=== PATIENT | male | born 1955 | race Caucasian/White ===

== ENCOUNTER → 2020-04-12 14:21 | Outpatient (BNVA) | payer MEDICARE, SELFPAY | PROVIDERS: PCP Internal Medicine; Visit Provider Internal Medicine Cardiovascular Disease | DX: I25.10 Atherosclerotic heart disease of native coronary artery without angina pectoris (principal); I10 Essential (primary) hypertension; E78.5 Hyperlipidemia, unspecified; I45.10 Unspecified right bundle-branch block | CPT/HCPCS: 93005; 99212 ==

== ENCOUNTER 2020-04-20 06:53 | Outpatient (REF) | payer MEDICARE, SELFPAY ==
[2020-04-20 11:21] LABS: Hematocrit 47.7 % (42-52); Hemoglobin 16.2 g/dl (14.0-18.0); Mean Corpuscular Hemoglobin 30.8 pg (27.0-33.0); Mean Corpuscular Volume 90.7 fL (80-98); Mean Platelet Volume 10.4 fL (9.4-12.4); Platelet Count 221 X10*3/uL (160-400); Red Blood Count 5.26 X10*6/uL (4.60-5.80); Red Cell Distribution Width 12.8 % (11.0-16.0); White Blood Count 13.8 X10*3/uL (4.8-10.8)
[2020-04-20 12:06] LABS: Anion Gap 17 (12-20); Blood Urea Nitrogen 23 mg/dL (9-16); Calcium 8.9 mg/dL (8.4-10.2); Carbon Dioxide 27 mmol/L (22-29); Chloride 97 mmol/L (96-108); Cholesterol 217 mg/dL; Estimated Glomerular Filt Rate > 60; Glucose Random 90 mg/dL (60-115); HDL Cholesterol 84 mg/dL; LDL Cholesterol Calculated 108 mg/dl; Potassium 3.5 mmol/L (3.3-5.1); Sodium 137 mmol/L (135-145); Triglycerides 128 mg/dL
== END 2020-04-20 06:54 | disposition home or self-care (01) ==
LOC: HO.HMGCLDS 06:53
PROVIDERS: Visit Provider Internal Medicine Cardiovascular Disease
DX: I10 Essential (primary) hypertension (principal); I25.10 Atherosclerotic heart disease of native coronary artery without angina pectoris
CPT/HCPCS: 36415; 80048; 80061; 85027

== ENCOUNTER → 2021-04-15 13:16 | Outpatient (BNVA) | payer MEDICARE, SELFPAY | PROVIDERS: PCP Internal Medicine; Visit Provider Internal Medicine Cardiovascular Disease | DX: I25.10 Atherosclerotic heart disease of native coronary artery without angina pectoris (principal); I10 Essential (primary) hypertension | CPT/HCPCS: 93005; 99212 ==

== ENCOUNTER 2021-07-04 06:31 | Outpatient (REF) | payer MEDICARE, SELFPAY ==
[2021-07-04 11:29] LABS: Cholesterol 120 mg/dL; HDL Cholesterol 45 mg/dL; LDL Cholesterol Calculated 46 mg/dl; Triglycerides 145 mg/dL
== END 2021-07-04 06:32 | disposition home or self-care (01) ==
LOC: HO.HMGCLDS 06:31
PROVIDERS: Visit Provider Internal Medicine Cardiovascular Disease
DX: I25.10 Atherosclerotic heart disease of native coronary artery without angina pectoris (principal)
CPT/HCPCS: 36415; 80061

== ENCOUNTER → 2022-04-15 09:30 | Outpatient (BNVA) | payer MEDICARE, SELFPAY | PROVIDERS: PCP Internal Medicine; Referring Provider Internal Medicine; Visit Provider Internal Medicine Cardiovascular Disease | DX: I25.10 Atherosclerotic heart disease of native coronary artery without angina pectoris (principal); I10 Essential (primary) hypertension; Z79.82 Long term (current) use of aspirin | CPT/HCPCS: 93005; 99212 ==

== ENCOUNTER 2023-04-13 12:23 | Outpatient (AMB) | payer MEDICARE, SELFPAY ==
[2023-04-13 12:34] VITALS: BP 130/80; PULSE 82; BMI 36.4
--- NOTE | 2023-04-13 12:34 | MHC.OFFVIS ---
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 Allergies morphine [MORPHINE] Allergy (Intermediate, Unverified 07/17/20 13:27) AGITATION Anesthetics - Amide Type - Select A [Anesthetics - Amide Type] Allergy (Unknown, Unverified 07/17/20 13:27) UNKNOWN Opioids - Morphine Analogues Allergy (Verified 07/17/20 13:27) Unknown Statins Allergy (Unknown, Uncoded 07/17/20 13:27) Unknown Statins Support Allergy (Unknown, Uncoded 07/17/20 13:) muscle and joint pain Medication List - Last Reconciled 04/13/23 by Felipe Daigle MD amlodipine 10 mg PO DAILY aspirin (Adult Aspirin Regimen) 81 mg PO BID cholecalciferol (vitamin D3) 25 mcg PO DAILY evolocumab (Repatha SureClick) 140 mg subcut Q2W 30 days gabapentin 300 mg PO TID losartan-hydrochlorothiazide 50-12.5 mg 1 tab PO DAILY metoprolol succinate ER 100 mg PO DAILY niacin ER (Niaspan) 500 mg PO BEDTIME primidone 50 mg PO BEDTIME thiamine HCl (vitamin B1) 50 mg PO DAILY HPI HPI Comments History of Present Illness Details Madhav comes for follow-up. He has been doing well from cardiac perspective. 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 He denies any chest pain. Denies any syncopal episodes. Denies any worsening shortness of breath. Takes all his medications. Switch to Repatha due to insurance issues. Complains of some burning at the injection sites but this is tolerable. No heart failure symptoms. No prolonged palpitations. [facility], LATER [facility] Medical History Right bundle branch block (RBBB) determined by electrocardiography Statin intolerance Hyperlipidemia HTN (hypertension) CAD (coronary artery disease) Surgical History Stented coronary artery Hx of cardiac cath Hx of knee surgery History of umbilical hernia repair Hx of cholecystectomy Family History Father CVD (cardiovascular disease) Mother CVD (cardiovascular disease) Review of Systems Const Denies chills, Denies fatigue, Denies fever(s), Denies frequent falls, Denies weakness, Denies weight gain and Denies weight loss ENT Denies dizziness Card Denies chest pain, Denies leg edema, Denies lightheadedness, Denies palpitations, Denies dyspnea, Denies dyspnea on exertion, Denies orthopnea and Denies other (loss of consciousness) Resp Denies cough, Denies dyspnea and Denies dyspnea on exertion GI Denies hematochezia and Denies change in stool character Musc Denies abnormal gait, Denies muscle weakness, Denies numbness, Denies radiating pain into limb and Denies tingling Neuro Denies abnormal gait, Denies dizziness, Denies frequent falls, Denies numbness, Denies tingling and Denies weakness Endo Denies fatigue and Denies palpitations Physical Exam Vital Signs: Last Vital Signs Pulse 82 04/13/23 12:34 BP 130/80 04/13/23 12:34 BMI result Body Mass Index 36.4 Const General: cooperative, comfortable, alert and awake Nutritional Appearance: obese Orientation/consciousness: patient oriented x3 Limitations: no limitations Neck Neck: Yes trachea midline, Yes supple and Yes no JVD Chest Chest palpation & inspection: normal inspection of the chest Resp Effort & Inspection: normal respiratory effort Auscultation: clear to auscultation bilaterally Cardio Jugular venous distension: no JVD Palpation: normal PMI Rate: regular rate Rhythm: regular rhythm Heart sounds: S1 normal heart sound present, S2 normal heart sound present and Other heart sounds present (Soft S4 present) Skin General skin exam: no rashes or lesions noted Neuro General: patient oriented x3 and no focal motor deficits Extrem General: Yes no clubbing, cyanosis or edema Psych Appearance: grossly normal Office Procedures EKG Details: EKG shows normal sinus rhythm with right bundle-branch block, unchanged from before with small Q-waves in inferior leads [id number], Complete Assessment & Plan Assessment & Plan (1) CAD (coronary artery disease): Code(s): I25.10 - Atherosclerotic heart disease of [place] coronary artery without angina pectoris Plan: CAD with remote stenting 1 in 2011 and then another 1 in 2018 for atypical symptoms. Will schedule for exercise myocardial perfusion imaging to evaluate for stent patency. Continue low-dose aspirin therapy for life. Continue aggressive lipid modification, currently on Repatha due to intolerance to statin therapy. Target goal LDL less than 60 mg/dL. Blood pressure is well optimized, see below. Encouraged to continue to participate in physical activity as tolerated and weight loss program. Understands and agrees. (2) HTN (hypertension): Code(s): I10 - Essential (primary) hypertension Plan: Hypertension which is currently well optimized. Continue current therapy. Importance of good blood pressure control was discussed. Target goal blood pressure less than 130/84. Low-salt diet was discussed. Advised to maintain heart healthy lifestyle and aggressive weight loss and regular activity program. Follow up in the clinic in 1 year's time, sooner p.r.n.. Thank you for allowing me to partake in his care Coding Level of Care Code Est Pt Level 4 (31639) Diagnoses CAD (coronary artery disease) I25.10 HTN (hypertension) I10 CPT Codes EKG - CPT: 31857-[id number], Complete ([id number])
== END 2023-04-13 13:00 | disposition home or self-care (01) ==
PROVIDERS: Visit Provider Internal Medicine Cardiovascular Disease
DX: I25.10 Atherosclerotic heart disease of native coronary artery without angina pectoris (principal); I10 Essential (primary) hypertension
CPT/HCPCS: 93010; 99214

== ENCOUNTER → 2023-04-13 12:23 | Outpatient (BNVA) | payer MEDICARE, SELFPAY | PROVIDERS: Visit Provider Internal Medicine Cardiovascular Disease | DX: I25.10 Atherosclerotic heart disease of native coronary artery without angina pectoris (principal); I10 Essential (primary) hypertension | CPT/HCPCS: 93005; 99212 ==

== ENCOUNTER 2023-04-27 07:38 | Outpatient (REF) | payer MEDICARE, SELFPAY ==
[2023-04-27 12:05] LABS: Cholesterol 100 mg/dL (<200); HDL Cholesterol 45 mg/dL (>40); LDL Cholesterol Calculated 34 mg/dL (<100); Triglycerides 106 mg/dL (<150)
== END 2023-04-27 07:39 | disposition home or self-care (01) ==
LOC: HO.HMGCLDS 07:38
PROVIDERS: PCP Internal Medicine; Visit Provider Internal Medicine Cardiovascular Disease
DX: I25.10 Atherosclerotic heart disease of native coronary artery without angina pectoris (principal)
CPT/HCPCS: 36415; 80061

== ENCOUNTER → 2023-05-15 08:18 | Outpatient (REF) | payer MEDICARE, SELFPAY | LOC: HO.CARD 08:18 | PROVIDERS: Visit Provider Internal Medicine Cardiovascular Disease | DX: Z13.89 Encounter for screening for other disorder (principal) ==

== ENCOUNTER → 2023-06-10 07:47 | Outpatient (REF) | payer MEDICARE, SELFPAY ==
--- NOTE | ~2023-06-10 | NM_ITS ---
Exercise Myocardial perfusion study Indication: Prior stenting to evaluate for myocardial ischemia Technique: The patient was brought in for an exercise perfusion study on 06/10/2023. Patient performed exercise as per Willie protocol and was injected 40 mCi of sestamibi was given intravenously one target HR was achieved. Images were obtained using the SPECT gamma camera interlaced with the gating device. Images were obtained in supine position. Resting perfusion study was performed on 06/11/2023. Patient was administered 40 mCi of sestamibi intravenously at rest. Images were then obtained in supine position. Images obtained with and without CT attenuation. Total DLP 123 mGy-cm. Images were processed with the software and compared side to side in short axis, horizontal long axis and vertical long axis views. Findings: The stress perfusion study showed both attenuated as well as non attenuated corrected images show normal uptake of radiotracer in all segments of LV myocardium. The gated study shows normal LV systolic function with calculated LVEF of 73%. LV cavity is normal in size. The gated study shows normal systolic wall thickening and contraction of all segments. There is no transient ischemic dilation. Resting study shows non attenuated images show normal uptake of radiotracer in all segments of LV myocardium. Gating at rest reveals normal systolic wall motion with ejection fraction at 63%. The findings are consistent with normal myocardial perfusion. NM/NM cardiolite stress test Impression: 1. Normal myocardial perfusion 2. Gated LVEF is 63% 3. Transient ischemic dilatation not present Stress EKG is negative for ischemia
--- NOTE | 2023-06-10 07:50 | CA_ITS ---
Acquisition Time: 2023-06-10 07:54:24 Total Exercise Time: 00:06:55 Test Indications: RBBB Medications: SEE H Protocol: FAHAD Max HR: 134 BPM 89% of Pred: 150 BPM Max BP: 174/078 mmHG Max Work Load: 8.4 METS Exercise stress test exercise 6 min 55 sec of Fahad protocol achieving 88% MPHR, without anginals sympyoms, with isolated PVCs, with resting HTN with normotensive response to exercise, without EKG changes. Nuclear images pending. Test reviewed with Dr. Daigle Referred By: Felipe Daigle Overread By: CLARITA ALFARO MD
== END ==
LOC: HO.CARD 07:47
PROVIDERS: PCP Internal Medicine; Visit Provider Internal Medicine Cardiovascular Disease
DX: R07.9 Chest pain, unspecified (principal); I25.10 Atherosclerotic heart disease of native coronary artery without angina pectoris
CPT/HCPCS: 78452; 93017; A9500

== ENCOUNTER → 2023-06-10 08:02 | Outpatient (BNV) | payer MEDICARE, SELFPAY | PROVIDERS: PCP Internal Medicine; Visit Provider Internal Medicine Cardiovascular Disease | DX: Z95.5 Presence of coronary angioplasty implant and graft (principal) | CPT/HCPCS: 78452 ==

== ENCOUNTER 2023-09-08 15:16 | Emergency (ER) | payer MEDICARE, SELFPAY ==
--- NOTE | 2023-09-08 | ECG_ITS ---
Test Reason : DIZZINESS Blood Pressure : / mmHG Vent. Rate : 086 BPM Atrial Rate : 086 BPM P-R Int : 198 ms QRS Dur : 144 ms QT Int : 406 ms P-R-T Axes : 047 038 015 degrees QTc Int : 485 ms Normal sinus rhythm Right bundle branch block Abnormal ECG When compared with ECG of 05-JUN-2018 08:19, No significant change was found Referred By: Generic ED Physician Electronically Signed By:Yong Coelho
--- NOTE | ~2023-09-08 | XR_ITS ---
EXAMINATION: XR CHEST CLINICAL INFORMATION: Chest pain, shortness of breath. COMPARISON: None available. TECHNIQUE: 2 views of the chest were obtained. FINDINGS: No significant abnormality is noted involving the heart, lungs, mediastinum, bony thorax or soft tissues. XR/XR chest 2V IMPRESSION: Unremarkable examination.
[2023-09-08 15:28] VITALS: BP 127/79; PULSE 100; O2SAT 96; BMI 37.4
[2023-09-08 15:35] VITALS: BP 131/62; PULSE 95; RESP 16; O2SAT 95
[2023-09-08 15:56] LABS: MANUAL DIFF FLAG NO
[2023-09-08 15:58] LABS: Basophils Percent Auto 0.4 % (0-2); Eosinophils Absolute Auto 0.1 X10*3/uL (0.0-0.4); Eosinophils Percent Auto 1.6 % (0-4); Hematocrit 42.4 % (42.0-52.0); Hemoglobin 15.6 g/dl (14.0-18.0); Imm Gran Abs Auto 0.02 X10*3/uL (0.00-0.03); Imm Gran Pct Auto 0.2 % (0.0-0.4); Lymphocytes Absolute Auto 1.9 X10*3/uL (1.2-4.9); Lymphocytes Percent Auto 23.5 % (20-40); Mean Corpuscular HGB Conc 36.8 g/dl (31.0-36.0); Mean Corpuscular Hemoglobin 32.6 pg (27.0-33.0); Mean Corpuscular Volume 88.5 fL (80.0-98.0); Mean Platelet Volume 10.3 fL (9.4-12.4); Monocytes Absolute Auto 0.6 X10*3/uL (0.1-1.2); Neutrophils Absolute Auto 5.3 x10*3/uL (2.0-8.3); Neutrophils Percent Auto 66.3 % (45-73); Platelet Count 221 X10*3/uL (160-400); Red Blood Count 4.79 X10*6/uL (4.60-5.80); Red Cell Distribution Width 12.9 % (11.0-16.0)
[2023-09-08 16:11] LABS: INTERNATIONAL NORM RATIO 0.9 (0.9-1.1); Prothrombin Time 11.1 SEC (11.1-13.3)
[2023-09-08 16:12] LABS: Alanine Aminotransferase 25 U/L (0-40); Albumin Level 4.3 g/dL (3.5-5.0); Alkaline Phosphatase 80 U/L (39-117); Anion Gap 14 (12-20); Aspartate Amino Transferase 25 U/L (5-37); Bilirubin Total 0.8 mg/dL (0.0-1.0); Blood Urea Nitrogen 13 mg/dL (9-16); Calcium 9.1 mg/dL (8.4-10.2); Carbon Dioxide 23 mmol/L (22-29); Chloride 109 mmol/L (96-108); Creatinine Clr Calc Pharmacy 76.7; Estimated Glomerular Filt Rate > 60; Glucose Random 96 mg/dL (60-115); Potassium 3.3 mmol/L (3.3-5.1); Sodium 143 mmol/L (135-145); Total Protein 7.2 g/dL (6.5-8.0)
[2023-09-08 16:14] LABS: Partial Thromboplastin Time 28.1 SEC (26.0-36.8)
[2023-09-08 16:18] LABS: B Type Natriuretic Peptide 34 pg/mL (<100)
[2023-09-08 16:19] LABS: Troponin-I High Sensitivity 6.4 ng/L (<3.5-35.0)
[2023-09-08 16:20] VITALS: BP 131/71; PULSE 87; RESP 13; O2SAT 96
--- NOTE | 2023-09-08 16:21 | PC.NURSE ---
biba from home doing yardwork in the heat - went inside approx 1400 - became dizzy/sob/chest tightness. pt received 324 ASA and 0.4nitro via EMS. cardiac hx. fast ED 0. upon ED arrival - a&ox4. vss and up to date. nsr on the cardiac exercise physiologist. pt has no complaints aside being slightly dizzy/having a headache. neuros intact. strength equal bilaterally. face symmetrical. pt verbalizes chest tightness subsided s/p medication administration via EMS. ekg performed. labs obtained/sent. 18g IV in the LAC via EMS - patent intact. no sob/wob noted. respirations even/unlabored. resting comfortably in no apparent distress. family bedside for support. plan of care ongoing. call holley placed within reach.
--- NOTE | 2023-09-08 16:26 | ED_ITS ---
HPI - General Adult General Chief complaint: Dizziness Stated complaint: DIZZY,SOB,CHEST PRESSURE PER EMS Time Seen by Provider: 09/08/23 16:18 Source: patient, EMS, RN notes reviewed and old records reviewed Mode of arrival: EMS History of Present Illness ED Provider: Laurie Pedro PA-C HPI narrative: 68-year-old male with a past medical history of CAD s/p stenting, HTN, HLD, RBBB, presenting to the ED via EMS complaining of chest tightness, lightheadedness and SOB s/p doing yard work in the heat all day. Admits to weed whacking and mowing his lawn, and overdoing it. Also reports decreased p.o. intake, only eating 1 meal a day. Denies chest pain at present, patient was given 325 mg of ASA and 0.4 mg of nitro by EMS. Does report mild headache at present. Denies SOB now, nausea/vomiting, numbness, tingling, weakness, abdominal pain. Denies taking anticoagulation other than aspirin Related Data Home Medications ?Medication ?Instructions ?Recorded ?Confirmed metoprolol succinate 100 mg 100 mg PO DAILY 03/16/20 04/13/23 tablet,extended release 24 hr aspirin 81 mg tablet,delayed 81 mg PO BID 04/12/20 04/13/23 release (Adult Aspirin Regimen) cholecalciferol (vitamin D3) 25 25 mcg PO DAILY 06/13/20 04/13/23 mcg (1,000 unit) capsule gabapentin 300 mg capsule 300 mg PO TID 06/13/20 04/13/23 niacin 500 mg tablet,extended 500 mg PO BEDTIME 06/13/20 04/13/23 release 24 hr (Niaspan) primidone 50 mg tablet 50 mg PO BEDTIME 06/13/20 04/13/23 thiamine HCl (vitamin B1) 100 mg 50 mg PO DAILY 06/13/20 04/13/23 tablet Previous Rx's ?Medication ?Instructions ?Recorded losartan 50 mg-hydrochlorothiazide 1 tab PO DAILY #90 tabs 09/09/22 12.5 mg tablet evolocumab 140 mg/mL subcutaneous 140 mg subcut Q2W 30 days #3 mL 03/26/23 pen injector (Gildardo Cooper) amlodipine 10 mg tablet 10 mg PO DAILY #90 tabs 07/20/23 Allergies Allergy/AdvReac Type Severity Reaction Status Date / Time morphine [MORPHINE] Allergy Intermediate AGITATION Verified 09/08/23 15:30 Anesthetics - Amide Type - Allergy Unknown UNKNOWN Verified 09/08/23 15:30 Select A [Anesthetics - Amide Type] Opioids - Morphine Analogues Allergy Unknown Verified 09/08/23 15:30 Statins Allergy Unknown Unknown Uncoded 09/08/23 15:30 Statins Support Allergy Unknown muscle and Uncoded 09/08/23 15:30 joint pain Review of Systems 2 Review of Systems: Constitutional: No Fever, No Chills ENT/Mouth: No Ear Pain, No Nasal Congestion, No Sinus Pain, No Hoarseness, No sore throat, No Rhinorrhea, No Swallowing Difficulty Cardiovascular: +Chest Pain, + SOB Respiratory: No Cough Gastrointestinal: No Nausea, No Vomiting, No Abdominal pain Genitourinary: No Dysuria, No Urinary Frequency, No Hematuria Musculoskeletal: No joint pain, No Myalgias, No Joint Swelling Skin: No Skin Lesions, No rash Neuro: + lightheaded, No Weakness, No Numbness, No Paresthesias Yes all other systems are reviewed and are negative Constitutional: Constitutional: Reports as per [facility] Past Medical History Attestation statement: The following information was validated with the patient. Source: old records reviewed Medical History Right bundle branch block (RBBB) determined by electrocardiography Statin intolerance Hyperlipidemia HTN (hypertension) CAD (coronary artery disease) Surgical History Stented coronary artery Hx of cardiac cath Hx of knee surgery History of umbilical hernia repair Hx of cholecystectomy Family History Family History Father CVD (cardiovascular disease) Mother CVD (cardiovascular disease) Social History Social History Alcohol intake: current Alcohol intake frequency: holidays/special occasions only Smoked in Last 30 Days: No Use of substances other than those prescribed or required for medical reasons: No Advance Directives: No Advance Directives Information Provided: Yes Do you have a plan to hurt others: No Plan Physical Exam ED Vital Signs: Vital Signs - 24 hr 09/08/23 15:35 09/08/23 16:20 09/08/23 18:52 Temperature Pulse Rate 95 87 73 Respiratory Rate 16 13 16 Blood Pressure 131/62 131/71 155/69 H Pulse Oximetry 95 96 97 Oxygen Delivery Method Room Air Room Air 09/08/23 18:53 09/08/23 18:53 09/08/23 18:53 Temperature Pulse Rate 73 75 73 Respiratory Rate Blood Pressure 155/69 H 164/75 H 162/73 H Pulse Oximetry Oxygen Delivery Method 09/08/23 21:08 Temperature 98.2 F Pulse Rate 73 Respiratory Rate 16 Blood Pressure 162/73 H Pulse Oximetry 100 Oxygen Delivery Method Room Air BMI result Body Mass Index 37.4 Const General: cooperative, healthy appearing and no acute distress Orientation/consciousness: patient oriented x3 Limitations: no limitations HENMT Head: Yes normal to inspection and Yes atraumatic Ears: hearing grossly normal bilaterally General nose exam: Normal external nose present Face and sinus: Yes normal facial exam Eyes General: appearance normal, both eyes and all related structures EOM: EOMs intact bilaterally Neck Neck: Yes normal visual inspection and Yes no meningeal signs Resp Effort & Inspection: normal respiratory effort and no respiratory distress Auscultation: clear to auscultation bilaterally, no crackles, no rales and no wheezes Cardio Rate: regular rate Heart sounds: S1 normal heart sound present and S2 normal heart sound present GI Inspection: Yes normal to inspection Palpation (GI): Soft to palpation, nontender, no guarding and not rigid General: Yes no CVA tenderness Back/Spine/Pelvis Back: no CVA tenderness Skin Rashes: no rashes Wounds: no wounds Neuro General: patient oriented x3, tone normal and no meningeal signs Cranial nerves: Yes CN's II-XII intact bilaterally Gait exam (Neuro): Normal gait present Extrem General: Yes normal to inspection and Yes no pedal edema Course Course Course Narrative: -initial troponin 6.4 > will obtain 3 hour repeat. Labs otherwise reassuring -chest x-ray unremarkable -0--ED care transferred to [facility] pending repeat troponin and orthostatic vital signs. Dispo per results Reevaluation(s) Reevaluation #1: Orthostatic vital signs were negative, delta troponin flat. Resolution of symptoms. Reports feeling overall well and requesting to be discharged home which I feel is reasonable at this time. Medications Administered Discontinued Medications Generic Name Dose Route Start Last Admin Trade Name Shirley PRN Reason Stop Dose Admin Acetaminophen 975 mg 09/08/23 16:30 09/08/23 16:46 Acetaminophen 325 Mg Tablet PO 09/08/23 16:31 975 mg ONCE ONE Administration Sodium Chloride 500 mls @ 999 mls/hr 09/08/23 16:30 09/08/23 18:12 Ns IV 09/08/23 17:00 Infused .Q31M MORRIS Infusion Medical Decision Making Medical Decision Making [facility] Narrative: 68-year-old male with a past medical history of CAD s/p stenting, HTN, HLD, RBBB, presenting to the ED via EMS complaining of chest tightness, lightheadedness and SOB s/p doing yard work in the heat all day. On exam vital signs stable, NAD, nontoxic appearing, lungs CTA, no pedal edema. Concern for ACS vs dehydration/metabolic abnormalities vs presyncope. Lower suspicion for infectious etiology, dissection, CHF, CVA Plan: EKG, labs, CXR, re-evaluate Please refer to course for remaining clinical decision making, interpretation of labs/imaging results, and discussions with consultants and/or family members. Differential Diagnosis Differential Diagnoses: The differential diagnosis associated with the presentation includes As above Admission/Observation Consideration of admission/observation: Escalation of care including admission/observation considered Lab Data [facility] Lab Attestation statement: I reviewed the patient's lab results. 09/08/23 15:51 09/08/23 15:51 Labs: Lab Results 09/08/23 09/08/23 Range/Units 15:51 18:48 WBC 8.0 (4.8-10.8) X10*3/uL RBC 4.79 (4.60-5.80) X10*6/uL Hgb 15.6 (14.0-18.0) g/dl Hct 42.4 (42.0-52.0) % MCV 88.5 (80.0-98.0) fL MCH 32.6 (27.0-33.0) pg MCHC 36.8 H (31.0-36.0) g/dl RDW 12.9 (11.0-16.0) % Plt Count 221 (160-400) X10*3/uL MPV 10.3 (9.4-12.4) fL Immature Gran % (Auto) 0.2 (0.0-0.4) % Neut % (Auto) 66.3 (45-73) % Lymph % (Auto) 23.5 (20-40) % Carbon % (Auto) 8.0 (2-11) % Eos % (Auto) 1.6 (0-4) % Baso % (Auto) 0.4 (0-2) % Lymph # (Auto) 1.9 (1.2-4.9) X10*3/uL Carbon # (Auto) 0.6 (0.1-1.2) X10*3/uL Eos # (Auto) 0.1 (0.0-0.4) X10*3/uL Baso # (Auto) 0.0 (0.0-0.2) X10*3/uL Abs Immat Gran (auto) 0.02 (0.00-0.03) X10*3/uL Absolute Neuts (auto) 5.3 (2.0-8.3) x10*3/uL Absolute Nucleated RBC 0.000 (0.0-0.012) X10*3/uL Nucleated RBC % (auto) 0.0 (0.0-0.2) /100WBC PT 11.1 (11.1-13.3) SEC INR 0.9 (0.9-1.1) APTT 28.1 (26.0-36.8) SEC Sodium 143 (135-145) mmol/L Potassium 3.3 (3.3-5.1) mmol/L Chloride 109 H (96-108) mmol/L Carbon Dioxide 23 (22-29) mmol/L Anion Gap 14 (12-20) BUN 13 (9-16) mg/dL Creatinine 1.12 (0.5-1.4) mg/dL Estim Creat Clear Calc 76.7 Estimated GFR > 60 Random Glucose 96 (60-115) mg/dL Calcium 9.1 (8.4-10.2) mg/dL Total Bilirubin 0.8 (0.0-1.0) mg/dL AST 25 (5-37) U/L ALT 25 (0-40) U/L Alkaline Phosphatase 80 (39-117) U/L Troponin I High Sens 6.4 6.3 (<3.5-35.0) ng/L B-Natriuretic Peptide 34 (<100) pg/mL Total Protein 7.2 (6.5-8.0) g/dL Albumin 4.3 (3.5-5.0) g/dL Independent Interpretation I performed an independent interpretation of an: EKG (My interpretation normal sinus rhythm rate of 86. ID interval 198. QTC 485. No significant change when compared to prior. No STEMI) and Plain X-Ray Radiology Impression Discussion of test interpretation with radiology: I have reviewed the radiologist's reading. Independent Historian Clinical information obtained from an independent historian. History obtained from or confirmed by: EMS External Record Review External record reviewed: Inpatient record, Office record, Outpatient record, Prior outpatient labs, Prior outpatient radiology, Primary care record and Outside ED record Tests considered The following testing was considered but not selected: As above Chronic Conditions Patient?s care impacted by: Hypertension and Other Discharge Plan Discharge Clinical Impression: Chest pain, Lightheadedness Patient Disposition: Home, Self-Care Instructions: Chest Pain (DC), Lightheadedness (ED) Additional Instructions: Your blood work is reassuring today You need to have close follow-up with your primary care doctor as well as footwear sales coordinator If her symptoms persist, worsen, recur, you develop constant or worsening chest pain, shortness of breath or lightheadedness return to the ED immediately. Continue home medication Prescriptions: No Action losartan-hydrochlorothiazide 50-12.5 mg tablet 1 tab PO DAILY Qty: 90 3RF Repatha SureClick 140 mg/mL pen injector 140 mg subcut Q2W 30 Days Qty: 3 5RF amlodipine 10 mg tablet 10 mg PO DAILY Qty: 90 1RF metoprolol succinate 100 mg tablet extended release 24 hr 100 mg PO DAILY gabapentin 300 mg capsule 300 mg PO TID niacin [Niaspan Extended-Release] 500 mg tablet extended release 24 hr 500 mg PO BEDTIME primidone 50 mg tablet 50 mg PO BEDTIME cholecalciferol (vitamin D3) 25 mcg (1,000 unit) capsule 25 mcg PO DAILY thiamine HCl (vitamin B1) 100 mg tablet 50 mg PO DAILY aspirin [Adult Aspirin Regimen] 81 mg tablet,delayed release (DR/EC) 81 mg PO BID Referrals: [facility] [place] [facility] [Provider Group] - 5 days Physician,Unknown J [Primary Care Provider] - Interventions: ED Discharge Assessment Last Done: 09/08/23 21:08 Discharge Date/Time: 09/08/23 21:09 Print Language: Nicaraguan
[2023-09-08] MEDS: 0.9 % Sodium Chloride 500 ML 999 ML IV (16:46)
[2023-09-08] MEDS: Acetaminophen 325 MG TABLET 975 MG PO (16:46)
--- NOTE | 2023-09-08 16:47 | PC.NURSE ---
pt returned from xray at this time. IVF/medication administered per provider order. effectiveness pending.
[2023-09-08 18:52] VITALS: BP 155/69; PULSE 73; RESP 16; O2SAT 97
[2023-09-08 18:53] VITALS: BP 155/69; BP 162/73; BP 164/75; PULSE 73; PULSE 75
[2023-09-08 19:48] LABS: Troponin-I High Sensitivity 6.3 ng/L (<3.5-35.0)
[2023-09-08 21:08] VITALS: BP 162/73; PULSE 73; RESP 16; TEMP 36.8; O2SAT 100
== END 2023-09-08 21:09 | disposition home or self-care (01) ==
PROVIDERS: Physician Assistant; Emergency Provider Emergency Medicine
DX: R07.9 Chest pain, unspecified (principal); R42 Dizziness and giddiness; R06.02 Shortness of breath; I10 Essential (primary) hypertension; I45.10 Unspecified right bundle-branch block; E78.5 Hyperlipidemia, unspecified; Z79.899 Other long term (current) drug therapy
CPT/HCPCS: 36415; 71046; 80053; 83880; 84484; 85025; 85610; 85730; 93005; 96360; 99284; 99285

== ENCOUNTER → 2023-09-08 15:41 | Outpatient (BNV) | payer MEDICARE, SELFPAY | PROVIDERS: Emergency Provider Emergency Medicine; Visit Provider Internal Medicine Cardiovascular Disease | DX: R42 Dizziness and giddiness (principal) | CPT/HCPCS: 93010 ==

== ENCOUNTER 2023-09-22 11:11 | Outpatient (AMB) | payer MEDICARE, SELFPAY ==
--- NOTE | 2023-09-22 11:22 | MHC.OFFVIS ---
Vital Signs 09/22/23 11:23 Height 5 ft 9 in Weight 260 lb 2.327 oz BMI 38.4 BP 120/72 Blood Pressure Location Lt brachial Position Sitting Intake Visit Reasons: follow-up ed dizziness Intake Note: Follow-up after ED was overdueing it in the heat for a few days feel better Elevator Attendant Required: No Allergies morphine [MORPHINE] Allergy (Intermediate, Verified 09/08/23 15:30) AGITATION Anesthetics - Amide Type - Select A [Anesthetics - Amide Type] Allergy (Unknown, Verified 09/08/23 15:30) UNKNOWN Opioids - Morphine Analogues Allergy (Verified 09/08/23 15:30) Unknown Statins Allergy (Unknown, Uncoded 09/08/23 15:30) Unknown Statins Support Allergy (Unknown, Uncoded 09/08/23 15:30) muscle and joint pain Medication List - Last Reconciled 09/22/23 by Felipe Daigle MD amlodipine 10 mg PO DAILY aspirin (Adult Aspirin Regimen) 81 mg PO BID cholecalciferol (vitamin D3) 25 mcg PO DAILY evolocumab (Repatha SureClick) 140 mg subcut Q2W 30 days gabapentin 300 mg PO TID losartan-hydrochlorothiazide 50-12.5 mg 1 tab PO DAILY metoprolol succinate ER 100 mg PO DAILY niacin ER (Niaspan) 500 mg PO BEDTIME primidone 50 mg PO BEDTIME thiamine HCl (vitamin B1) 50 mg PO DAILY HPI Comments Details: Madhav comes for follow-up. Recently was in the emergency room after having a lightheaded episode and not feeling well. 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 He subsequently felt lightheaded and said he could not cool down even after settling down and drinking water and Gatorade. We did not lose consciousness. Do not have any chest pain. Did not have any shortness of breath. In the emergency room was given IV fluid resuscitation. His troponins were negative. EKGs showed no changes with old right bundle-branch block. His recent myocardial perfusion imaging was within normal limits COUNTS INCLUDE 234 BEDS AT THE [facility] Medical History Right bundle branch block (RBBB) determined by electrocardiography Statin intolerance Hyperlipidemia HTN (hypertension) CAD (coronary artery disease) Surgical History Stented coronary artery Hx of cardiac cath Hx of knee surgery History of umbilical hernia repair Hx of cholecystectomy Family History Father CVD (cardiovascular disease) Mother CVD (cardiovascular disease) Social History Alcohol intake: current Alcohol intake frequency: holidays/special occasions only Review of Systems Const Denies chills, Denies fatigue, Denies fever(s), Denies frequent falls, Denies weakness, Denies weight gain and Denies weight loss ENT Denies dizziness Card Denies chest pain, Denies leg edema, Denies lightheadedness, Denies palpitations, Denies dyspnea, Denies dyspnea on exertion, Denies orthopnea and Denies other (loss of consciousness) Resp Denies cough, Denies dyspnea and Denies dyspnea on exertion GI Denies hematochezia and Denies change in stool character Musc Denies abnormal gait, Denies muscle weakness, Denies numbness, Denies radiating pain into limb and Denies tingling Neuro Denies abnormal gait, Denies dizziness, Denies frequent falls, Denies numbness, Denies tingling and Denies weakness Endo Denies fatigue and Denies palpitations Physical Exam Vital Signs: Last Vital Signs BP 120/72 09/22/23 11:23 BMI result Body Mass Index 38.4 Const General: cooperative, comfortable, alert and awake Nutritional Appearance: obese Orientation/consciousness: patient oriented x3 Limitations: no limitations Neck Neck: Yes trachea midline, Yes supple and Yes no JVD Chest Chest palpation & inspection: normal inspection of the chest Resp Effort & Inspection: normal respiratory effort Auscultation: clear to auscultation bilaterally Cardio Jugular venous distension: no JVD Palpation: normal PMI Rate: regular rate Rhythm: regular rhythm Heart sounds: S1 normal heart sound present, S2 normal heart sound present and Other heart sounds present (Soft S4 present) Skin General skin exam: no rashes or lesions noted Neuro General: patient oriented x3 and no focal motor deficits Extrem General: Yes no clubbing, cyanosis or edema Psych Appearance: grossly normal Assessment & Plan Assessment & Plan (1) CAD (coronary artery disease): Code(s): I25.10 - Atherosclerotic heart disease of [place] coronary artery without angina pectoris Category: Medical Plan: CAD with prior stenting to the LAD and diagonal branch with no current recent symptoms suggestive angina. Myocardial perfusion imaging in May was within normal limits. Recent presented to the hospital was not suggestive of acute coronary syndrome. Continue aggressive medical therapy. Continue low-dose aspirin therapy for life. Continue aggressive blood pressure control, see below. Continue aggressive lipid modification although currently only on niacin, could not tolerate statin therapy. Target goal LDL less than 70 mg/dL. Maintain activity level as tolerated. (2) HTN (hypertension): Code(s): I10 - Essential (primary) hypertension Category: Medical Plan: Hypertension which is currently well optimized advised to monitor blood pressure at home maintain a log goal blood pressure less than 130/84. Low-salt diet was discussed. Continue current therapy. Continue to participate in physical activity as well as weight loss program. (3) Near syncope: Code(s): R55 - Syncope and collapse Plan: Recent episode of near-syncope appears to be due to dehydration and heavy workload in a very heart and humid weather. Recommend to avoid such heavy workout in such weather. Advised to maintain adequate hydration. Orthostatic precautions were discussed. Will follow up in the clinic in 1 year's time, sooner p.r.n.. Thank you for allowing me to partake in his care Coding Level of Care Code Est Pt Level 4 (51202) Diagnoses CAD (coronary artery disease) I25.10 HTN (hypertension) I10 Near syncope R55
[2023-09-22 11:23] VITALS: BP 120/72; BMI 38.4
== END 2023-09-22 11:53 | disposition home or self-care (01) ==
PROVIDERS: Visit Provider Internal Medicine Cardiovascular Disease
DX: I25.10 Atherosclerotic heart disease of native coronary artery without angina pectoris (principal); I10 Essential (primary) hypertension; R55 Syncope and collapse
CPT/HCPCS: 99214

== ENCOUNTER → 2023-09-22 11:11 | Outpatient (BNVA) | payer MEDICARE, SELFPAY | PROVIDERS: Visit Provider Internal Medicine Cardiovascular Disease | DX: I25.10 Atherosclerotic heart disease of native coronary artery without angina pectoris (principal); I10 Essential (primary) hypertension; R55 Syncope and collapse; Z79.82 Long term (current) use of aspirin | CPT/HCPCS: 99212 ==

== ENCOUNTER 2024-04-15 09:20 | Outpatient (REF) | payer MEDICARE, SELFPAY ==
--- NOTE | ~2024-04-15 | XR_ITS ---
CLINICAL HISTORY: M51.369 - Other intervertebral disc degeneration, lumbar region without ... 4 views lumbar spine Comparison: None Findings: There is no acute fracture or malalignment. There is straightening of the normal lumbar lordosis. There is multilevel disc space narrowing. There is facet hypertrophy within the lower lumbar spine. No significant anterolisthesis or retrolisthesis with flexion or extension. Impression: Moderate degenerative change. No acute process. This document has been electronically signed by: Kp Gannon MD on 04/16/2024 05:52:00
== END 2024-04-15 09:21 | disposition home or self-care (01) ==
LOC: HO.HOSX 09:20
PROVIDERS: PCP Internal Medicine; Visit Provider Neurological Surgery
DX: M51.362 Other intervertebral disc degeneration, lumbar region with discogenic back pain and lower extremity pain (principal)
CPT/HCPCS: 72110; 99202

== ENCOUNTER 2024-04-15 09:20 | Outpatient (AMB) | payer MEDICARE, SELFPAY ==
--- OUTSIDE RECORDS SUMMARY | 2024-04-15 09:43 | XMS_ITS | Continuity of Care Document ---
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 Name Role Phone Carroll Ndiaye MD Primary Care Physician Encounter [facility] Date(s): 03/15/24 - 04/14/24 [facility] [address] [place] [id number] Encounter Type: Triage Allergies, Adverse Reactions, Alerts Substance Criticality Severity Reaction Reaction Severity Status morphine 1 C/O - vomiting Acti ve statins Muscle ache Active 1vomitting Immunizations Given and Recorded Vaccine Date Status Refusal Reason influenza virus vaccine, inactivated 12/30/21 Tony rded influenza virus vaccine, inactivated 1 12/31/20 Gi nupur influenza virus vaccine, inactivated 2 02/21/20 Gi nupur influenza virus vaccine, inactivated 11/23/17 Give n [id number] bivalent booster vax 12/30/21 Recorded SARS-CoV-2 (COVID-19) mRNA-1273 vaccine 06/25/21 R ecorded SARS-CoV-2 (COVID-19) mRNA-1273 vaccine 06/18/20 R ecorded SARS-CoV-2 (COVID-19) mRNA-1273 vaccine 05/21/20 R ecorded pneumococcal 13-valent vaccine 3 02/21/20 Given tetanus/diphtheria/pertussis, acel(Tdap) 11/23/17 Given Zoster Vaccine Live 4 12/30/13 Recorded tetanus-diphtheria toxoids (Td) 11/02/13 Recorded tetanus-diphtheria toxoids (Td) 06/13/12 Recorded tetanus-diphtheria toxoids (Td) 03/02/06 Given 1Result Comment: [facility]: [id number] 2Result Comment: [facility]# [id number] 3Result Comment: [facility]# [id number] 4[facility] Medic[facility] amLODIPine 10 mg oral tablet 1 tablet = 10 mg, By Mouth, Daily, # 90 tablet, 0 Refills, Maintenance, 11/17/23 9:12:00 AM EDT, Tablet, Partial fill upon patient request if the prescription is for a schedule II opioid drug. Start Date: 11/17/23 Status: Ordered Quantity: 90.0 Unit: tablet Repeat number: 1 aspirin 81 mg oral tablet 2 tablet = 162 mg, By Mouth, Daily, # 180 tablet, 1 Refills, Maintenance, 03/29/13 3:35:44 PM EST, Tablet Start Date: 03/29/13 Stop Date: 09/25/13 Status: Ordered Quantity: 180.0 Unit: tablet Repeat number: 2 clopidogrel 75 mg oral tablet 75 mg, 1, tablet, By Mouth, Daily, # 90 tablet, Refills 0, Maintenance, 10/26/18 7:40:11 AM EDT Start Date: 10/26/18 Status: Ordered Quantity: 90.0 Unit: tablet Repeat number: 1 gabapentin 300 mg oral capsule 2, capsule, By Mouth, 3 times a day, # 540 capsule, Refills 1, Maintenance, 04/12/24 12:21:00 PM EST, Route to Pharmacy Electronically, [facility], 178, cm, 03/17/24 7:54:00 EST, Height Start Date: 04/12/24 Status: Ordered Quantity: 540.0 Unit: capsule Repeat number: 1 hydrochlorothiazide-losartan 12.5 mg-50 mg oral tablet 1 tablet, By Mouth, Daily, # 90 tablet, 0 Refills, Maintenance, 05/15/20 7:31:00 AM EDT, Tablet, Partial fill upon patient request if the prescription is for a schedule II opioid drug. Start Date: 05/15/20 Status: Ordered Quantity: 90.0 Unit: tablet Repeat number: 1 metoprolol 100 mg oral tablet, extended release 100 mg, 1, tablet, By Mouth, Daily, # 90 tablet, Refills 3, Tot. Refills 3, Maintenance, 11/17/23 9:10:00 AM EDT, Route to Pharmacy Electronically, [facility], Partial fill uponpatient request if the prescription is for a schedule II opioid drug., 178, cm, 11/17/23 8:46:00 EDT, Height Start Date: 11/17/23 Status: Ordered Quantity: 90.0 Unit: tablet Repeat number: 4 niacin 1000 mg oral tablet, extended release See Instructions, TAKE 2 TABLETS WITH A MEAL AT BEDTIME, OFFICE VISIT NEEDED FOR REFILLS, # 180 tablet, 3 Refills, Maintenance, 11/17/23 9:10:00 AM EDT, [facility], 178, cm, 11/17/23 8:46:00 EDT, Height Start Date: 11/17/23 Status: Ordered Quantity: 180.0 Unit: tablet Repeat number: 4 Praluent Pen 150 mg/mL subcutaneous solution 0 Refills, Maintenance, 11/17/23 9:11:00 AM EDT, Partial fill upon patient request if the prescription is for a schedule II opioid drug. Start Date: 11/17/23 Status: Ordered Repeat number: 1 primidone 50 mg oral tablet 150 mg, 3, tablet, By Mouth, 2 times a day, # 540 tablet, Refills 3, Tot. Refills 3, Maintenance, 11/17/23 9:10:00 AM EDT, Route to Pharmacy Electronically, [facility], 178, cm,11/17/23 8:46:00 EDT, Height Start Date: 11/17/23 Stop Date: 11/11/24 Status: Ordered Quantity: 540.0 Unit: tablet Repeat number: 4 Ventolin HFA 108 mcg/inh inhalation aerosol with adapter 2 puffs, Inhalation, 4 times a day, PRN for wheezing, # 18 Gm, 0 Refills, Maintenance, 03/07/19 4:00:00 PM EST, Aerosol, [facility]pharmacy #[id number], 177.8, cm, 03/07/19 15:22:00 EST, Height, 109, kg, 06/11/18 9:57:00 EDT, Dry Weight Start Date: 03/07/19 Status: Ordered Quantity: 18.0 Unit: g Repeat number: 1 Vitamin B-100 1 tablet, By Mouth, Daily, 0 Refills, Maintenance, 05/14/16 9:18:55 AM EDT Start Date: 05/14/16 Status: Ordered Repeat number: 1 Vitamin D3 1000 intl units oral capsule 1 capsule = 1,000 International_Units, By Mouth, Daily, 0 Refills, Maintenance, 05/14/16 9:19:43 AM EDT Start Date: 05/14/16 Status: Ordered Repeat number: 1 Problem List Condition Confirmation Course Effective Dates Status Health Status Informant Back pain, low back 1 Confirmed 07/01/11 Active CAD (coronary artery disease) 2, 3 Confirmed Active CVA (cerebral vascular accident) Confirmed Active Confusion state Confirmed Active Essential tremor Confirmed Active Hemorrhoids Confirmed Active Impaired Fasting Glucose Confirmed 04/13/12 Active ED (erectile dysfunction) Confirmed Active Knee pain, left Confirmed Active Malignant Neoplasm of Kidney, Except Pelvis 4 Confirmed 07/01/11 Active Obesity NOS Confirmed 07/01/11 Active Prostate enlargement, (BPH), without obstruction NOS Confirmed 07/01/11 Active Pure Hypercholesterolemia Confirmed 07/01/11 Active Repair of Umbilical Hernia 5 Confirmed 07/01/11 Active Severe obesity (BMI 35.0-39.9) with comorbidity Confirmed Active Amnesia, global, transient Confirmed Active Tremors of nervous system Confirmed Active Unspecified Essential Hypertension Confirmed 07/01/11 Active 1status post back surgery for schwannoma in 1999 at [facility] by . Currently going to [place] [facility] 2he sees Dr. Dumont at [facility] 3s/p Stent placement in LAD and OM-1 drug eluting stents in Jan 2012 4status post renal cell carcinoma and status post right nephrectomy in 2000 in [facility]. No chemotherapy or radiation 5status post umbilical hernia repair x2 Social History Social History Type Response Smoking Status Never (less than 100 in lifetime); Tobacco user in household: No entered on: 03/12/21 Sex Sex Representation Male (finding) Patient Care team information Care Team Personnel Name: Jaci Weldon RN Position: [facility] RN Member Role: Primary Care Nurse Name: Razia Fitch RN, I Position: [facility] RN Member Role: Primary Care Nurse Name: Marti Mortensen RN Position: [facility] SN Social Service Director Member Role: Primary Care Nurse Name: Carroll Ndiaye MD Position: [facility] Physician - Primary Care Member Role: PCP Address: [address] [facility], [place] [address]- [place] Tele[employer]: Name: Connie GARZA, Evelyn Position: [facility] RN Member Role: Primary Care Nurse Care Team Related Persons Name: ANKIT NEREIDA Insurance Providers Guarantor name: DAWSON PHAM Health Plan Information #: 1 Payer: MEDICARE PART B OUTPT Member Number: NA Policy Number: NA Group Number: NA Health Plan Information #: 2 Payer: MEDEX Member Number: NA Policy Number: NA Group Number: NA
--- OUTSIDE RECORDS SUMMARY | 2024-04-15 09:43 | XMS_ITS | Continuity of Care Document ---
Author Organization [facility] ter Address [address] [place] [id number]- Care Team Providers Care Excellence Consultant Name Role Phone Carroll Ndiaye MD Primary Care Physician [phone] Encounter 03/23/24 - 03/24/[address] [id number]- Attending Physician: Not on Staff, Attending MD Referring Physician: Not on Staff, Referring MD Encounter Type: [facility] Allergies, Adverse Reactions, Alerts Substance Criticality Severity Reaction Reaction Severity Status morphine 1 C/O - vomiting Acti ve statins Muscle ache Active 1vomitting Immunizations Given and Recorded Vaccine Date Status Refusal Reason influenza virus vaccine, inactivated 12/30/21 Tony rded influenza virus vaccine, inactivated 1 12/31/20 Gi nupur influenza virus vaccine, inactivated 2 02/21/20 Gi nupur influenza virus vaccine, inactivated 11/23/17 Give n [id number] bivalent booster vax 12/30/21 Recorded SARS-CoV-2 (COVID-19) mRNA-1273 vaccine 06/25/21 R ecorded SARS-CoV-2 (COVID-19) mRNA-1273 vaccine 06/18/20 R ecorded SARS-CoV-2 (COVID-19) mRNA-1273 vaccine 05/21/20 R ecorded pneumococcal 13-valent vaccine 3 02/21/20 Given tetanus/diphtheria/pertussis, acel(Tdap) 11/23/17 Given Zoster Vaccine Live 4 12/30/13 Recorded tetanus-diphtheria toxoids (Td) 11/02/13 Recorded tetanus-diphtheria toxoids (Td) 4/14/13 Recorded tetanus-diphtheria toxoids (Td) 03/02/06 Given 1Result Comment: [facility]: [id number] 2Result Comment: [facility]# [id number] 3Result Comment: [facility]# [id number] 4[facility] amLODIPine 10 mg [...] times a day, # 540 capsule, Refills 2, Maintenance, 06/11/23 2:29:00 PM EDT,Route to Pharmacy Electronically, [facility], 178, cm, 05/12/23 9:12:00 EDT, Height Start Date: 06/11/23 Status: Ordered Quantity: 540.0 Unit: capsule Repeat [...] 9:10:00 AM EDT, Route to Pharmacy Electronically, [facility], Partial fill uponpatient request if the [...] 3 Refills, Maintenance, 11/17/23 9:10:00 AM EDT, [facility], 178, cm, 11/17/23 8:46:00 EDT, Height [...] 9:10:00 AM EDT, Route to Pharmacy Electronically, [facility], 178, cm,11/17/23 8:46:00 EDT, Height Start Date: 11/17/23 Stop Date: 11/11/24 Status: Ordered Quantity: 540.0 Unit: tablet Repeat number: 4 Ventolin HFA 108 mcg/inh inhalation aerosol with adapter 2 puffs, Inhalation, 4 times a day, PRN for wheezing, # 18 Gm, 0 Refills, Maintenance, 03/07/19 4:00:00 PM EST, Aerosol, [facility]/pharmacy #[id number], 177.8, cm, 03/07/19 15:22:00 EST, Height, 109, kg, 06/11/18 9:57:00 EDT, Dry Weight Start Date: 03/07/19 Status: Ordered Quantity: 18.0 Unit: g Repeat number: 1 Vitamin B-100 1 tablet, By Mouth, Daily, 0 Refills, Maintenance, 3/15/17 9:18:55 AM EDT Start Date: 05/14/16 Status: [...] back surgery for schwannoma in 1999 at [facility] by . Currently going to [place] [facility] 2he sees Dr. Dumont at [facility] 3s/p Stent placement in LAD and OM-1 drug eluting stents in Jan 2012 4status post renal cell carcinoma and status post right nephrectomy in 2000 in [facility]. 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 Member Role: Primary Care Nurse Name: Carroll Ndiyae MD Position: [facility] Physician - Primary Care Member Role: PCP Address: [address] [facility], [place] [address]- [place] Tele[employer]: Name: Connie GARZA, Evelyn Position: [facility] RN Member Role: Primary Care Nurse Care Team Related Persons Name: NEREIDA PHAM Insurance Providers Guarantor name: DAWSON PHAM Health Plan Information #: 1 Payer: MEDICARE PART B OUTPT Member Number: NA Policy Number: NA Group Number: NA Health Plan Information #: 2 Payer: MEDEX Member Number: NA Policy Number: NA Group Number: NA
--- OUTSIDE RECORDS SUMMARY | 2024-04-15 09:43 | XMS_ITS | Continuity of Care Document ---
Author Organization [facility] Address [address] [place] [address]- Care Team Providers Care Senior Statistician Name Role Phone Carroll Ndiaye MD Primary Care Physician Encounter [facility] NBR [id number] Date(s): 03/17/24 - 03/24/24 [facility] [address] [place] [id number]- Encounter Diagnosis Chronic low back pain with left-sided sciatica(Discharge Diagnosis) - 03/17/24 Attending Physician: Carroll Ndiaye MD Encounter Type: Office Visit Allergies, Adverse Reactions, Alerts Substance Criticality Severity Reaction Reaction Severity Status morphine 1 C/O - vomiting Acti ve statins Muscle ache Active 1vomitting Immunizations Given and Recorded Vaccine Date Status Refusal Reason influenza virus vaccine, inactivated 12/30/21 Tony rded influenza virus vaccine, inactivated 1 12/31/20 Gi nupur influenza virus vaccine, inactivated 2 02/21/20 Gi nupur influenza virus vaccine, inactivated 11/23/17 Give n [id number] bivalent booster vax 12/30/21 Recorded SARS-CoV-2 (COVID-19) mRNA-1273 vaccine 06/25/21 R ecorded SARS-CoV-2 (COVID-19) mRNA-1273 vaccine 06/18/20 R ecorded SARS-CoV-2 (COVID-19) mRNA-1273 vaccine 05/21/20 R ecorded pneumococcal 13-valent vaccine 3 02/21/20 Given tetanus/diphtheria/pertussis, acel(Tdap) 11/23/17 Given Zoster Vaccine Live 4 12/30/13 Recorded tetanus-diphtheria toxoids (Td) 11/02/13 Recorded tetanus-diphtheria toxoids (Td) 06/13/12 Recorded tetanus-diphtheria toxoids (Td) 03/02/06 Given 1Result Comment: [facility]: [id number] 2Result Comment: [facility]# [id number] 3Result Comment: [facility]# [id number] 4[facility] amLODIPine 10 mg [...] 06/11/23 2:29:00 PM EDT,Route to Pharmacy Electronically, [facility], 178, cm, 05/12/23 9:12:00 [...] 9:10:00 AM EDT, Route to Pharmacy Electronically, Pharmacy, Partial fill uponpatient request if the [...] 3 Refills, Maintenance, 11/17/23 9:10:00 AM EDT, Pharmacy, 178, cm, 11/17/23 8:46:00 EDT, Height [...] 9:10:00 AM EDT, Route to Pharmacy Electronically, Pharmacy, 178, cm,11/17/23 8:46:00 EDT, Height Start Date: 11/17/23 Stop Date: 11/11/24 Status: Ordered Quantity: 540.0 Unit: tablet Repeat number: 4 Ventolin HFA 108 mcg/inh inhalation aerosol with adapter 2 puffs, Inhalation, 4 times a day, PRN for wheezing, # 18 Gm, 0 Refills, Maintenance, 03/07/19 4:00:00 PM EST, Aerosol, [facility]/pharmacy #[id number], 177.8, cm, 03/07/19 15:22:00 EST, Height, [...] back surgery for schwannoma in 1999 at [facility] by . Currently going to [facility] 2he sees Dr. Dumotn at [facility] 3s/p Stent placement in LAD and OM-1 drug eluting stents in Jan 2012 4status post renal cell carcinoma and status post right nephrectomy in [address] [facility]. No chemotherapy or radiation 5status post umbilical hernia repair x2 Diagnosis Diagnosis Type Effective Dates Health Status Cl inical Service Informant Chronic low back pain with left-sided sciatica Discharge Diagnosis 03/17/24 Vital Signs Most recent to oldest [Reference Range]: 1 Height 178 cm (03/17/24 7:54 AM) Weight 123.8 kg (03/17/24 7:54 AM) Oxygen Saturation [94-100 %] 99 % (03/17/24 7:54 AM) Pulse Rate [55-90 bpm] 90 bpm (03/17/24 7:54 AM) Body Mass Index [18.5-24.99 kg/m2] 39.07 kg/m2 *>HHI* (03/17/24 7:54 AM) Blood Pressure [90-138/55-84 mm Hg] 130/ 70mm Hg (03/17/24 7:54 AM) Respiratory Rate [16-30 br/min] 16 br/mi n (03/17/24 7:54 AM) Temperature [96.8-100.4 DegF] 98.2 DegF (03/17/24 7:54 AM) Mode of Delivery (Oxygen) Room air (03/17/24 7:54 AM) Blood pressure sites Arm, left (03/17/24 7:54 AM) Temperature Route Temporal (03/17/24 7:54 AM) Weight Obtained Via Standing scale (03/17/24 7:54 AM) Social History Social History Type Response Smoking Status Never (less than 100 in lifetime); Tobacco user in household: No entered on: 03/12/21 Sex Sex Representation Male (finding) Note * Mattie Olivo: PERFORM Event Display: Patient Education/Instruction Authored Date: [id number] Ambulatory Adult Visit Summary [facility] [address] [address] Name: DAWSON PHAM : 1955?? Visit: 03/17/2024 07:51?? Ambulatory Visit Instructions ?? Your Care Team Primary Care Provider Carroll Ndiaye MD? This Visit Provider Carroll Ndiaye MD Your Diagnosis Chronic low back pain with left-sided sciatica Vitals Signs Temperature: 98.2 DegF Height: 178 cm Pulse Rate: 90 bpm Weight: 123.8 kg Respiratory Rate: 16 br/min Body Mass Index:??39.07 kg/m2??Critical Systolic Blood Pressure: 130 mm Hg Body surface area: 2.47 Diastolic Blood Pressure: 70 mm Hg ?? Oxygen Saturation: 99 % ?? What to do next Scheduled Follow-Up Appointments Thursday 7:20 AM EDT ?? With: Carroll Ndiaye MD Where: [facility] [address] [address]- Status: Pending Medications The list below reflects the information in our records and provided by you today along with any changes made during this visit. Please continue your medications until treatment is completed or stopped by your provider. If this is different from the information you have or there are other questions,please contact the prescribing provider. What How Much When Instructions Unchanged Albuterol (Ventolin HFA 108 mcg/ inh inhalation aerosol with adapter) 2 puff(s) Inhalation 4 times a day as needed for for wheezing Unchanged alirocumab (Praluent Pen 150 mg/ mL subcutaneous solution) Unchanged Amlodipine (amLODIPine 10 mg oral tablet) 1 tab(s) Oral Daily Unchanged Aspirin (aspirin 81 mg oral tablet) 2 tab(s) Oral Daily Duration: 90 Days Unchanged Cholecalciferol (Vitamin D3 1000 intl units oral capsule) 1 capsule Oral Daily Unchanged Clopidogrel (clopidogrel 75 mg oral tablet) 1 tab(s) Oral Daily Unchanged Gabapentin (gabapentin 300 mg oral capsule) 2 capsule Oral 3 times a day Unchanged Hydrochlorothiazide-Losartan (hydrochlorothiazide-losartan 12.5 mg-50 mg oral tablet) 1 tab(s) Oral Daily Unchanged Metoprolol (metoprolol 100 mg oral tablet, extended release) 1 tab(s) Oral Daily Unchanged Multivitamin (Vitamin B-100) 1 tab(s) Oral Daily Unchanged Niacin (niacin 1000 mg oral tablet, extended release) See instructions TAKE 2 TABLETS WITH A MEAL AT BEDTIME, OFFICE VISIT ?? NEEDED FOR REFILLS ?? Unchanged Primidone (primidone 50 mg oral tablet) 3 tab(s) Oral Twice a day Duration: 90 Days Medications and Immunizations Administered Medications Given During Visit No medications given during this visit.?? Allergies (NKA means No Known Allergies) morphine??(C/O - vomiting) statins??(Muscle ache) Common Emergency Awareness Tips IS IT A STROKE? Act FAST and Check for these signs: FACE Does the face look uneven? ARM Does one arm drift down? SPEECH Does their speech sound strange? TIME Call at any sign of stroke ?? Heart Attack Signs Chest discomfort: Most heart attacks involve discomfort in the center of the chest and lasts more than a few minutes, or goes away and comes back. It can feel like uncomfortable pressure, squeezing, fullness or pain. Discomfort in upper body: Symptoms can include pain or discomfort in one or both arms, back, neck, jaw or stomach. Shortness of breath: With or without discomfort. Other signs: Breaking out in a cold sweat, nausea, or lightheaded. Remember, MINUTES DO MATTER. If you experience any of these heart attack warning signs, call to get immediate medical attention! ?? Smoking can increase your chances of developing chronic health problems and can cause harmful effects to other family members in your house. If you smoke, you are strongly encouraged to quit. Please call [facility] at [phone] or [phone] ([phone]) or log in to [email or web address] for referrals to smoking cessation programs. ?? The National Suicide Prevention Hotline is available 22/09 if you or someone you know needs to find a reason to keep living. By calling 7-272-157-Socialize (5229) you'll be connected to a skilled, trained counselor at a crisis center in your area. [facility] Portal You can view and manage your care through the patient portal or by using a health care mary of your choosing. [employer] is a website that allows you to securely view your medical information including your hospital discharge summary, office visit summaries, medications and follow-up visits. You can also request appointments, renew medications, and request access to your medical information using a health care mary of your choosing, or just ask a question. You can enroll at [email or web address] or register during your next office visit. [facility], in keeping with [facility] guidance, no longer requires face masks for staff, patientsor visitors in most situations. Similiar to time spent indoors at other locations, there is the chance that you were exposed to repiratory viruses during your time with us (such as flu or COVID-19). If you develop symptoms concerning for a viral respiratory infection, please seek testing (and treatment if indicated) from your medical provider or home test kit. ?? Disclaimer: The information provided is of a general nature and is intended to be used in conjunction with the recommendations and advice of your health care practitioner. Every effort has been made to ensure that the information provided is accurate and complete at the time it is provided to you however, as your needs change, or, as new information becomes available, different or additional instructions may be required. ?? If you have questions, please consult with your primary care provider or pharmacist, as appropriate. This information is not intended to serve as substitution for assessment and evaluation by a qualified health care provider. If you do not have a primary care provider, you may find a [facility] provider by calling [facility] at [phone]. Patient Care team information Care Team Personnel Name: Jaci Weldon RN Position: [facility] RN Member Role: Primary Care Nurse Name: Razia Fitch RN, I Position: [facility] RN Member Role: Primary Care Nurse Name: Marti Mortensen RN Position: [facility] Cement Mixer Driver Member Role: Primary Care Nurse Name: Carroll Ndiaye MD Position: [facility] Physician - Primary Care Member Role: PCP Address: [address] [place] [address] Telecom: Name: Evelyn Rosales RN Position: [facility] RN Member Role: Primary Care Nurse Care Team Related Persons Name: ANKIT NEREIDA Insurance Providers Guarantor name: DAWSON PHAM Health Plan Information #: 2 Payer: MEDEX Member Number: [id number] Policy Number: NA Group Number: NA Health Plan Information #: 1 Payer: MEDICARE PART B OUTPT Member Number: [id number] Policy Number: NA Group Number: NA
[2024-04-15 09:52] VITALS: BMI 38.4
--- NOTE | 2024-04-15 09:52 | A.SPINEOV_ITS ---
Vital Signs 04/15/24 09:52 Height 5 ft 9 in Weight 260 lb BMI 38.4 Intake Visit Reasons: LBP Intake Note: Mr. Goodson is here today c/o low back pain and sharp leg pain. Quality Analyst/Technical Writer Required: No Allergies morphine [MORPHINE] Allergy (Intermediate, Verified 04/15/24 09:53) AGITATION Anesthetics - Amide Type - Select A [Anesthetics - Amide Type] Allergy (Unknown, Verified 04/15/24 09:53) UNKNOWN Opioids - Morphine Analogues Allergy (Verified 04/15/24 09:53) Unknown Statins Allergy (Unknown, Uncoded 09/08/23 15:30) Unknown Statins Support Allergy (Unknown, Uncoded 09/08/23 15:30) muscle and joint pain Physical Exam Vital Signs: BMI result Body Mass Index 38.4 Assessment & Plan Assessment & Plan (1) Degenerative disc disease, lumbar: Code(s): M51.369 - Other intervertebral disc degeneration, lumbar region without mention of lumbar back pain or lower extremity pain Category: Medical Qualifiers: Disc-related pain type: discogenic back pain and lower extremity pain Qualified Code(s): M51.362 - Other intervertebral disc degeneration, lumbar region with discogenic back pain and lower extremity pain Plan: Dear colleague Thank you for referring Tracie Goodson to the office today with a chief complaint of progressive low back pain. 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 He points towards the left side where it radiates to his buttock. He states that the pain is constantly present. 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 He also states that he throws his back out that can last for days or longer. These episodes have been more frequent lately. When he does he is tilted towards the right side. He received cortisone shots 15 years ago. The following conservative treatment options were tried without success antiinflammatories, tylenol, physician guided home exercise plan, cortisone shots PMH: Hypertension Medications: Right knee replacement, right kidney section and lumbar spine surgery for schwannoma Allergies: Statins and morphine Social history: . Three children. Nonsmoker Physical Exam: Height 5'9 weight 255 lb. The leg produces pain on the left side in the SI joint region. No motor sensory or reflex deficits. It is painful to 2 change positions from sitting to standing. Flexion-extension is limited but not due to pain. Leg crossing produces pain in the left SI joint Radiological Studies: MRI done at [facility] on 03/23/2024 shows lumbar degenerative disc disease, predominantly at L4-5 with an asymmetric collapse of the disc space towards the right side. There is bilateral L4 foraminal stenosis. There is no evidence of residual schwannoma. Impression/Plan: This patient is suffering from chronic back pain with a component of radiculopathy in an L4 dermatome on the left side. Differential diagnosis is lumbar radiculopathy versus SI joint pathology. I am going to refer to our pain management with a request to do an left L4 nerve block and possibly a left SI joint injection if the L4 block is negative. The patient will return to my clinic for follow-up to discuss further options. Thank you for allowing me to participate in your patients care. total time spent was 50 minutes in counseling ,coordination of plan, personal review of imaging, surgical decision making and subsequent plan Ton Cohen MD, PhD Spine Fellowship Trained Neurosurgeon Director, [facility] Orders: Orders XR lumbar spine 4V min Today M51.369 - Other intervertebral disc degeneration, lumbar region without mention of lumbar back pain or lower extremity pain Referrals Pain Management Referral M51.362 - Other intervertebral disc degeneration, lumbar region with discogenic back pain and lower extremity pain Coding Level of Care Code New Pt Level 4 (55766) Diagnoses Degeneration of intervertebral disc of lumbar region with discogenic back pain and lower extremity pain M51.362 Disc-related pain type: discogenic back pain and lower extremity pain
== END 2024-04-15 10:32 | disposition home or self-care (01) ==
PROVIDERS: PCP Internal Medicine; Visit Provider Neurological Surgery
DX: M51.362 Other intervertebral disc degeneration, lumbar region with discogenic back pain and lower extremity pain (principal)
CPT/HCPCS: 99204

== ENCOUNTER → 2024-04-15 10:11 | Outpatient (BNV) | payer MEDICARE, SELFPAY | PROVIDERS: PCP Internal Medicine; Visit Provider Radiology Vascular & Interventional Radiology | DX: M51.369 Other intervertebral disc degeneration, lumbar region without mention of lumbar back pain or lower extremity pain (principal) | CPT/HCPCS: 72110 ==

== ENCOUNTER 2024-04-29 09:21 | Outpatient (AMB) | payer MEDICARE, SELFPAY ==
[2024-04-29 09:25] VITALS: BP 170/78; PULSE 73; RESP 16; O2SAT 95; BMI 38.4
--- NOTE | 2024-04-29 09:25 | A.OFFVIS_ITS ---
Vital Signs 04/29/24 09:25 Height 5 ft 9 in Weight 260 lb BMI 38.4 BP 170/78 H Blood Pressure Location Lt brachial Position Sitting Respiration 16 Pulse 73 Pulse Source Pulse Oximeter Pulse Oximetry (%) 95 Oxygen Delivery Method Room Air Intake Visit Reasons: Other intervertebral disc degeneration Recreational Therapy Technician Required: No Allergies morphine [MORPHINE] Allergy (Intermediate, Verified 04/29/24 09:26) AGITATION Anesthetics - Amide Type - Select A [Anesthetics - Amide Type] Allergy (Unknown, Verified 04/29/24 09:26) UNKNOWN Opioids - Morphine Analogues Allergy (Verified 04/29/24 09:) Unknown Statins Allergy (Unknown, Uncoded 04/29/24 09:26) Unknown Statins Support Allergy (Unknown, Uncoded 04/29/24 09:) muscle and joint pain Medication List - Last Reconciled 04/29/24 by Yamilex Ricci LPN amlodipine 10 mg PO DAILY aspirin (Adult Aspirin Regimen) 81 mg PO BID cholecalciferol (vitamin D3) 25 mcg PO DAILY evolocumab (Repathnatasha SureRileyick) 140 mg subcut Q2W 30 days gabapentin 300 mg PO TID losartan-hydrochlorothiazide 50-12.5 mg 1 tab PO DAILY metoprolol succinate ER 100 mg PO DAILY niacin ER (Niaspan) 500 mg PO BEDTIME primidone 50 mg PO BEDTIME thiamine HCl (vitamin B1) 50 mg PO DAILY HPI HPI Other intervertebral disc degeneration: Details: History of Present Illness The patient is a 69-year-old male presenting with chronic low back pain. The pain began following lumbar spine surgery for a schwannoma over 15 years ago and has since progressed. Current symptoms include constant axial low back pain, rated at 7/10 on average, with radiation to the left buttock and occasionally to the left thigh and knee. Pain intensity increases with physical activities and can cause significant episodes of debilitating flares that may last for days. Previous treatments such as NSAIDs, acetaminophen, physical therapy, and corticosteroid injections have not provided significant or sustained relief over the halfway. MRI findings indicate significant lumbar degenerative disc disease, especially at the L4-5 level, accompanied by facet joint hypertrophy. The patient has consistently continued physical work, which often exacerbates his pain. Prior SI joint nerve blocks provided temporary relief, though their efficacy waned over time. The pain has been managed periodically with out of school hours care worker, particularly during acute flares, in addition to prescribed analgesics. Pain Description - Pain onset: Post lumbar schwannoma surgery over 15 years ago. - Pain quality: Severe, constant, and progressive. - Primary location: Axial low back. - Radiation: Left buttock, left thigh, and anterior knee. - Pain intensity: Average of 7/10. - Aggravating factors: Physical activity, bending, extensive physical work. - Alleviating factors: SI joint nerve blocks (previously), chiropractic adjustments. - Functional interference: Limited in bending, lifting, and requires assistance for certain activities. Physical Exam - Musculoskeletal- Lumbar extension very limited, pain reproduced on extension. Positive facet loading. Tightness noted on left side during examination maneuvers. Results - Imaging: MRI findings include significant hypertrophy of the facet joints, predominantly at the L4-5 level, with associated scarring and fatty infiltration of the lumbar multifidi muscles. Pain Management - Affect: Pain impacts functional capacity during physical work but maintains an active lifestyle. - Analgesia: Current medications include NSAIDs and acetaminophen. Pain level is consistently reported at 7/10. - Adverse Effects: No adverse effects from medications were reported. - Activities of Daily Living: Pain affects physical activities, requiring assistance for strenuous tasks. - Aberrant Drug Related Behaviors: No evidence of medication misuse reported. COUNTS INCLUDE 234 BEDS AT THE [facility] Medical History Right bundle branch block (RBBB) determined by electrocardiography Statin intolerance Hyperlipidemia HTN (hypertension) CAD (coronary artery disease) Surgical History Stented coronary artery Hx of cardiac cath Hx of knee surgery History of umbilical hernia repair Hx of cholecystectomy Family History Father CVD (cardiovascular disease) Mother CVD (cardiovascular disease) Social History Alcohol intake: current Alcohol intake frequency: holidays/special occasions only Physical Exam Vital Signs: Last Vital Signs Pulse 73 04/29/24 09:25 Resp 16 04/29/24 09:25 BP 170/78 H 04/29/24 09:25 Pulse Ox 95 04/29/24 09:25 Oxygen Delivery Method Room Air 04/29/24 09:25 BMI result Body Mass Index 38.4 Assessment & Plan Assessment & Plan (1) Degenerative disc disease, lumbar: Code(s): M51.369 - Other intervertebral disc degeneration, lumbar region without mention of lumbar back pain or lower extremity pain Category: Medical Qualifiers: Disc-related pain type: discogenic back pain and lower extremity pain Qualified Code(s): M51.362 - Other intervertebral disc degeneration, lumbar region with discogenic back pain and lower extremity pain (2) Dysfunction of the multifidus muscle of lumbar region: Code(s): M62.85 - Dysfunction of the multifidus muscles, lumbar region Category: Medical (3) Lumbar spondylosis: Code(s): M47.816 - Spondylosis without myelopathy or radiculopathy, lumbar region Category: Medical (4) Vertebrogenic low back pain: Code(s): M54.51 - Vertebrogenic low back pain Category: Medical Plan Plan We will proceed with diagnostic left L4 nerve root block as a 1st step per neurosurgery recommendation. I do feel his axial back pain is mostly facet mediated with the associated multifidus dysfunction and trialing a peripheral nerve stimulation to target the axial low back pain may be a likely step in the future. We can also extend this to vertebrogenic interventions if necessary. Procedural scheduling is contingent on insurance approval. Continued attention to pain management is prioritized to optimize quality of life and functionality, and further intervention will be determined by the response to the nerve stimulation trial. Patient was informed and verbally consented to the use of an ambient scribe for clinic note documentation during this visit. Discussion Notes I discussed with the patient the likely multi-factorial nature of his chronic low back pain, with significant involvement of facet joint pathology as suggested by MRI findings and clinical presentation. For the management of the axial low back pain extending into his buttock and thigh, I proposed temporary nerve stimulation of the left lumbar medial branch nerves. We reviewed procedure details, including potential benefits and a success rate of approximately 70%. Risks and operational constraints were addressed, such as displacement risks of the device, insurance approval processes, and care requirements. The patient expressed understanding and willingness to proceed with the trial. As a 1st step however, we will proceed with a diagnostic L4 nerve root block per neurosurgical recommendation. I advised that further measures, such as vertebral nerve ablation, may be considered if initial response proves inadequate. We agreed to schedule based on availability in early May, pending authorization. Patient Instructions - Await a call from our office for scheduling after obtaining insurance authorization for nerve root block. - Maintain proper lifting techniques and avoid excessive bending. - Notify the office if experiencing any new significant symptoms or sudden changes in pain patterns. - Continue current pain management strategies, including NSAIDs and acetaminoph en as previously instructed. - Utilize out of school hours care worker as needed. - Follow up in early May unless otherwise directed. Coding Level of Care Code New Pt Level 4 (01999) Diagnoses Degeneration of intervertebral disc of lumbar region with discogenic back pain and lower extremity pain M51.362 Disc-related pain type: discogenic back pain and lower extremity pain Dysfunction of the multifidus muscle of lumbar region M62.85 Lumbar spondylosis M47.816 Vertebrogenic low back pain M54.51
--- OUTSIDE RECORDS SUMMARY | 2024-04-29 10:02 | XMS_ITS | Continuity of Care Document ---
Author Organization [facility] [employer] [facility] Address [address] [place] [address]- Care Team Providers Care Duck Farmer Name Role Phone Carroll Ndiaye MD Primary Care Physician [phone] Encounter [facility] Date(s): 03/16/24 - 04/15/24 [facility] [facility] [address] [place] [address]- Encounter Type: Triage Allergies, Adverse Reactions, Alerts [...] influenza virus vaccine, inactivated 11/23/17 Give n [id number] bivalent booster vax 12/30/21 Recorded SARS-CoV-2 (COVID-19) mRNA-1273 vaccine 06/25/21 R ecorded SARS-CoV-2 (COVID-19) mRNA-1273 vaccine 06/18/20 R ecorded SARS-CoV-2 (COVID-19) mRNA-1273 vaccine 05/21/20 R ecorded pneumococcal 13-valent vaccine 3 02/21/20 Given tetanus/diphtheria/pertussis, acel(Tdap) 11/23/17 Given Zoster Vaccine Live 4 12/30/13 Recorded tetanus-diphtheria toxoids (Td) 11/02/13 Recorded tetanus-diphtheria toxoids (Td) 06/13/12 Recorded tetanus-diphtheria toxoids (Td) 03/02/06 Given 1Result Comment: [facility]: [id number] 2Result Comment: [facility]# [id number] 3Result Comment: [facility]# [id number] 4Location [facility] amLODIPine 10 mg [...] 9:10:00 AM EDT, Route to Pharmacy Electronically, [facility], Partial fill uponpatient request [...] 3 Refills, Maintenance, 11/17/23 9:10:00 AM EDT, [facility], 178, cm, 11/17/23 8:46:00 [...] 9:10:00 AM EDT, Route to Pharmacy Electronically, [facility], 178, cm,11/17/23 8:46:00 EDT, Height Start Date: 11/17/23 Stop Date: 11/11/24 Status: Ordered Quantity: 540.0 Unit: tablet Repeat number: 4 Ventolin HFA 108 mcg/inh inhalation aerosol with adapter 2 puffs, Inhalation, 4 times a day, PRN for wheezing, # 18 Gm, 0 Refills, Maintenance, 03/07/19 4:00:00 PM EST, Aerosol, [facility]/pharmacy #[id number], 177.8, cm, 03/07/19 15:22:00 EST, Height, [...] back surgery for schwannoma in 1999 at [facility] by . Currently going to [place] [facility] 2he sees Dr. Dumont at [facility] 3s/p Stent placement in LAD and OM-1 drug eluting stents in Jan 2012 4status post renal cell carcinoma and status post right nephrectomy in 2000 in [facility]. No chemotherapy or radiation 5status post umbilical hernia repair x2 Social History Social History Type Response Smoking Status Never (less than 100 in lifetime); Tobacco user in household: No entered on: 03/12/21 Sex Sex Representation Male (finding) Patient Care team information Care Team Personnel Name: Jaci Weldon RN Position: [facility] RN Member Role: Primary Care Nurse Name: Razia Fitch RN, I Position: [facility] RN Member Role: Primary Care Nurse Name: Marti Mortensen RN Position: [facility] SN Director Of Guidance In [employer] Member Role: Primary Care Nurse Name: Carroll Ndiaye MD Position: [facility] Physician - Primary Care Member Role: PCP Address: [address], [place] [address]- [place] Telecom: Name: Connie GARZA, Evelyn Position: [facility] RN Member Role: Primary Care Nurse Care Team Related Persons Name: ANKIT NEREIDA Insurance Providers Guarantor name: DAWSON PHAM Health Plan Information #: 1 Payer: MEDICARE PART B OUTPT Member Number: NA Policy Number: NA Group Number: NA Health Plan Information #: 2 Payer: MEDEX Member Number: NA Policy Number: NA Group Number: NA
--- OUTSIDE RECORDS SUMMARY | 2024-04-29 10:02 | XMS_ITS | Continuity of Care Document ---
Author Organization [facility] Address [address] [place] [address]- Care Team Providers Care Billet Shearer Name Role Phone Carroll Ndiaye MD Primary Care Physician Encounter [facility] [id number] Date(s): 03/17/24 - 04/16/24 [facility] [address] [place] [address]- Attending Physician: Admtr, Td8 Admitting Physician: Admtr, Abbie Referring Physician: Admtr, Ar8 Encounter Type: Triage Allergies, Adverse Reactions, Alerts [...] influenza virus vaccine, inactivated 11/23/17 Give n [id number] bivalent booster vax 12/30/21 Recorded SARS-CoV-2 (COVID-19) mRNA-1273 vaccine 06/25/21 R ecorded SARS-CoV-2 (COVID-19) mRNA-1273 vaccine 06/18/20 R ecorded SARS-CoV-2 (COVID-19) mRNA-1273 vaccine 05/21/20 R ecorded pneumococcal 13-valent vaccine 3 02/21/20 Given tetanus/diphtheria/pertussis, acel(Tdap) 11/23/17 Given Zoster Vaccine Live 4 10/31/14 Recorded tetanus-diphtheria toxoids (Td) 11/02/13 Recorded tetanus-diphtheria toxoids (Td) 06/13/12 Recorded tetanus-diphtheria toxoids (Td) 03/02/06 Given 1Result Comment: [facility]: [id number] 2Result Comment: [facility]# [id number] 3Result Comment: [facility]# [id number] 4Location History[facility] amLOD[facility]ine 10 mg [...] 12:21:00 PM EST, [facility] to [facility] Electronically[facility], 178, cm, 03/17/24 7:54:00 [...] 9:10:00 AM EDT, Route to Pharmacy Electronically, [facility], Partial fill uponpatient request [...] 3 Refills, Maintenance, 11/17/23 9:10:00 AM EDT, [facility], 178, cm, 11/17/23 8:46:00 [...] 9:10:00 AM EDT, Route to Pharmacy Electronically, [facility], 178, cm,11/17/23 8:46:00 EDT, Height Start Date: 11/17/23 Stop Date: 11/11/24 Status: Ordered Quantity: 540.0 Unit: tablet Repeat number: 4 Ventolin HFA 108 mcg/inh inhalation aerosol with adapter 2 puffs, Inhalation, 4 times a day, PRN for wheezing, # 18 Gm, 0 Refills, Maintenance, 03/07/19 4:00:00 PM EST, Aerosol, [facility]/pharmacy #[id number], 177.8, cm, 03/07/19 15:22:00 EST, Height, [...] back surgery for schwannoma in 1999 at [facility] by . Currently going to [place] [facility] 2he sees Dr. Dumont at [facility] 3s/p Stent placement in LAD and OM-1 drug eluting stents in Jan 2012 4status post renal cell carcinoma and status post right nephrectomy in 2000 in [facility]. No chemotherapy or radiation 5status post umbilical hernia repair x2 Social History Social History Type Response Smoking Status Never (less than 100 in lifetime); Tobacco user in household: No entered on: 03/12/21 Sex Sex Representation Male (finding) Hospital Consult note * Event Display: Inpatient Consult Note, Non-BH Authored Date: Cardiology * Event Display: Cardiology Office Note, Non-BH Authored Date: * Event Display: Cardiology Office Note, Non-BH Authored Date: * Event Display: Non BH Cardiovascular Results Authored Date: Laboratory * Carroll Ndiaye MD: REVIEW Event Display: Non BH Lab Results Authored Date: * Carroll Ndiaye MD: REVIEW Event Display: Non BH Lab Results Authored Date: Radiology * Event Display: [place] Nuclear Medicine, Non-BH Authored Date: * Carroll Ndiaye MD: REVIEW Event Display: MRI Head, Non- BH Authored Date: Patient Care team information Care Team Personnel Name: Jaci Weldon RN Position: [facility] SN RN Member Role: Primary Care Nurse Name: Razia Fitch RN, I Position: [facility] SN RN Member Role: Primary Care Nurse Name: Marti Mortensen RN Position: [facility] SN Clothing Room Supervisor Member Role: Primary Care Nurse Name: Carroll Ndiaye MD Position: [facility] Physician - Primary Care Member Role: PCP Address: [address] [place] [address] Telecom: Name: Evelyn Rosales RN Position: [facility] RN Member [...]
== END 2024-04-29 10:03 | disposition home or self-care (01) ==
PROVIDERS: PCP Internal Medicine; Referring Provider Neurological Surgery; Visit Provider Internal Medicine
DX: M51.362 Other intervertebral disc degeneration, lumbar region with discogenic back pain and lower extremity pain (principal); M62.85 Dysfunction of the multifidus muscles, lumbar region; M47.816 Spondylosis without myelopathy or radiculopathy, lumbar region; M54.51 Vertebrogenic low back pain
CPT/HCPCS: 99204

== ENCOUNTER → 2024-04-29 09:21 | Outpatient (BNVA) | payer MEDICARE, SELFPAY | PROVIDERS: PCP Internal Medicine; Referring Provider Neurological Surgery; Visit Provider Internal Medicine | DX: M51.362 Other intervertebral disc degeneration, lumbar region with discogenic back pain and lower extremity pain (principal); M62.85 Dysfunction of the multifidus muscles, lumbar region; M47.816 Spondylosis without myelopathy or radiculopathy, lumbar region; M54.51 Vertebrogenic low back pain | CPT/HCPCS: 99202 ==

== ENCOUNTER 2024-05-05 06:17 | Outpatient (REF) | payer MEDICARE, SELFPAY ==
--- NOTE | ~2024-05-05 | FL_ITS ---
EXAMINATION: FL GUIDANCE ONLY HISTORY: M51.362 - Other intervertebral disc degeneration, lumbar region with disc... COMPARISON: None available. TECHNIQUE: Fluoroscopy time: 0.2 minutes. Cumulative Dose: 13.0 mGy. DAP: 0.112 mGym2 Images: 3. FINDINGS: Images demonstrate a needle and contrast material in the region of the left L4-5 facet joint. FL/FL guidance in treatment room IMPRESSION: Fluoroscopy during procedure. Please see procedure report for additional information. Electronically signed by: Cristobal Blankenship MD 05/09/2024 08:20 AM EDT
== END 2024-05-05 06:18 | disposition home or self-care (01) ==
LOC: CF 06:17
PROVIDERS: Visit Provider Internal Medicine
DX: M51.362 Other intervertebral disc degeneration, lumbar region with discogenic back pain and lower extremity pain (principal); M54.16 Radiculopathy, lumbar region
CPT/HCPCS: 64483; J1100; J2003; Q9967

== ENCOUNTER 2024-05-05 11:12 | Outpatient (AMB) | payer MEDICARE, SELFPAY ==
--- NOTE | 2024-05-05 11:14 | MHC.OFFVIS ---
Vital Signs 05/05/24 11:25 05/05/24 12:08 BP 154/84 H 161/86 H Blood Pressure Location Lt brachial Lt brachial Position Sitting Sitting Pulse 85 79 Pulse Source Pulse Oximeter Pulse Oximeter Pulse Oximetry (%) 98 97 Oxygen Delivery Method Room Air Room Air Comment Pre-Op Post-Op Intake Visit Reasons: LEFT L4 SNRB Allergies morphine [MORPHINE] Allergy (Intermediate, Verified 04/29/24 09:26) AGITATION Anesthetics - Amide Type - Select A [Anesthetics - Amide Type] Allergy (Unknown, Verified 04/29/24 09:26) UNKNOWN Opioids - Morphine Analogues Allergy (Verified 04/29/24:) Unknown Statins Allergy (Unknown, Uncoded 04/29/24:) Unknown Statins Support Allergy (Unknown, Uncoded 04/29/24:) muscle and joint pain HPI HPI LEFT L4 SNRB: Details: Patient presents for scheduled procedure. Denies any recent cough, cold, infection, fever or other significant changes in medical history since last office visit. [facility] Medical History Right bundle branch block (RBBB) determined by electrocardiography Statin intolerance Hyperlipidemia HTN (hypertension) CAD (coronary artery disease) Surgical History Stented coronary artery Hx of cardiac cath Hx of knee surgery History of umbilical hernia repair Hx of cholecystectomy Family History Father CVD (cardiovascular disease) Mother CVD (cardiovascular disease) Social History Alcohol intake: current Alcohol intake frequency: holidays/special occasions only Physical Exam Vital Signs: Last Vital Signs Pulse 79 05/05/24 12:08 BP 161/86 H 05/05/24 12:08 Pulse Ox 97 05/05/24 12:08 Oxygen Delivery Method Room Air 05/05/24 12:08 Office Procedures Details: Selective nerve root block, left L4 After obtaining written consent, pre-procedure blood pressure and heart rate were stable and recorded in the nursing record. The patient was placed in the prone position on the fluoroscopy table. The lumbosacral area was prepped with chloraprep, allowed to dry and draped in sterile fashion. Using fluoroscopy, the skin overlying our target was anesthetized with 0.5% lidocaine. A 22 gauge 3.5 inch spinal needle was advanced to the safe triangle in the upper pole of the left L4 foramen. No paresthesias were elicited with needle placement and aspiration was negative for blood and CSF. Correct needle position was confirmed with approximately 1 ml contrast dye (Omnipaque 180 mg/ml) injected under real-time fluoroscopy. No evidence of vascular or intrathecal uptake was seen and there was both epidural and peripheral spread of the contrast agent. 1 ml containing 0.5% lidocaine was slowly injected. The needle was flushed and removed. The skin was cleansed and a sterile bandages were applied. The patient tolerated the procedure well and no complications were encountered. Following the procedure the patient's vital signs were stable. The patient was discharged home in good condition with post-procedural instructions. Time Out: Immediately prior to the procedure, the following was verbally confirmed that there is a signed consent form and that the correct patient, planned procedure, site and side are consistent with documentation and that necessary equipment and/or blood products are available prior to the start of the case. Complications: none EBL: <5 cc 00195 - Lumbar/Sacral Procedure code (CPT) selection complete Assessment & Plan Assessment & Plan (1) Lumbar radiculopathy: Code(s): M54.16 - Radiculopathy, lumbar region Category: Medical Plan Patient is status post left L4 selective nerve root block. Patient tolerated procedure well and was discharged home in stable condition with discharge instructions. All questions were answered. We will follow-up via telephone or in clinic to assess response to therapy. A follow-up appointment was made during today's visit. Orders: Orders FL guidance in treatment room Today M51.362 - Other intervertebral disc degeneration, lumbar region with discogenic back pain and lower extremity pain Coding Level of Care Code Procedure Only Diagnoses Lumbar radiculopathy M54.16 CPT Codes Transforaminal Epidural Steroid Inj - TESI 3: 40791 - Lumbar/Sacral ([id number])
[2024-05-05 11:25] VITALS: BP 154/84; PULSE 85; O2SAT 98
[2024-05-05 12:08] VITALS: BP 161/86; PULSE 79; O2SAT 97
== END 2024-05-05 12:08 | disposition home or self-care (01) ==
LOC: HO.PMCPRC 11:12
PROVIDERS: PCP Internal Medicine; Visit Provider Internal Medicine
DX: M54.16 Radiculopathy, lumbar region (principal)
CPT/HCPCS: 64483

== ENCOUNTER 2024-05-09 11:43 | Outpatient (AMB) | payer MEDICARE, SELFPAY ==
--- NOTE | 2024-05-09 11:44 | A.OFFVIS_ITS ---
Vital Signs 05/09/24 11:46 Height 5 ft 9 in Weight 267 lb BMI 39.4 BP 142/73 H Blood Pressure Location Lt brachial Position Sitting Respiration 16 Pulse 79 Pulse Source Pulse Oximeter Pulse Oximetry (%) 96 Oxygen Delivery Method Room Air Intake Visit Reasons: s/p L4 NB Griddle Cook Required: No Allergies morphine [MORPHINE] Allergy (Intermediate, Verified 05/09/24 11:52) AGITATION Anesthetics - Amide Type - Select A [Anesthetics - Amide Type] Allergy (Unknown, Verified 05/09/24 11:52) UNKNOWN Opioids - Morphine Analogues Allergy (Verified 05/09/24 11:52) Unknown Statins Allergy (Unknown, Uncoded 05/09/24 11:52) Unknown Statins Support Allergy (Unknown, Uncoded 05/09/24 11:52) muscle and joint pain Medication List - Last Reconciled 05/09/24 by Yamilex Ricci LPN amlodipine 10 mg PO DAILY aspirin (Adult Aspirin Regimen) 81 mg PO BID cholecalciferol (vitamin D3) 25 mcg PO DAILY evolocumab (Repatha SureClick) 140 mg subcut Q2W 30 days gabapentin 300 mg PO TID losartan-hydrochlorothiazide 50-12.5 mg 1 tab PO DAILY metoprolol succinate ER 100 mg PO DAILY niacin ER (Niaspan) 500 mg PO BEDTIME primidone 50 mg PO BEDTIME thiamine HCl (vitamin B1) 50 mg PO DAILY HPI HPI s/p L4 NB: Details: History of Present Illness The patient is a 69-year-old male presenting with lumbar radiculopathy for follow-up evaluation. He recently underwent a left L4 diagnostic nerve root block, resulting in a significant decrease in pain symptoms. Relief was substantial, with more than an 80% reduction in pain, dropping to a 1 to 2 on the pain scale. The patient noted that the block was effective in providing minimal discomfort on some days. Nevertheless, the pain resurfaced following strenuous activities, although the relief generally provided by the injection highlights potential effectiveness of further interventions. Future steps may include discussing surgical options with Dr. Cohen, weighing against ongoing conservative management. Pain Description - Onset and Timing: Chronic pain with variable relief following an L4 nerve root block. - Quality and Character: Varies from minimal to moderate; significant relief obtained post-injection. - Location: Primarily in the lumbar region. - Exacerbating Factors: Increased physical activity, such as prolonged work. - Relieving Factors: Diagnostic nerve root injection. - Interference: Activities of daily living impacted, particularly with increased physical activity. Physical Exam - Appears afebrile. - Alert and oriented. - Mood and affect appropriate. - Follows and participates in conversation appropriately. - Respiratory effort is unlabored. - Able to transition from sit to stand unassisted. Results - Procedures: Left L4 diagnostic nerve root block with over 80% symptom relief. Pain Management - Affect: Patient reports good mood despite varying pain levels. - Analgesia: Post-injection pain level decreased to a mild range of 1 to 2. - Adverse Effects: None reported regarding the injection. - Activities of Daily Living: Pain interferes with activities, particularly following strenuous actions. - Aberrant Drug Related Behaviors: No aberrant behaviors reported. [facility] Medical History Right bundle branch block (RBBB) determined by electrocardiography Statin intolerance Hyperlipidemia HTN (hypertension) CAD (coronary artery disease) Surgical History Stented coronary artery Hx of cardiac cath Hx of knee surgery History of umbilical hernia repair Hx of cholecystectomy Family History Father CVD (cardiovascular disease) Mother CVD (cardiovascular disease) Social History Alcohol intake: current Alcohol intake frequency: holidays/special occasions only Physical Exam Vital Signs: Last Vital Signs Pulse 79 05/09/24 11:46 Resp 16 05/09/24 11:46 BP 142/73 H 05/09/24 11:46 Pulse Ox 96 05/09/24 11:46 Oxygen Delivery Method Room Air 05/09/24 11:46 BMI result Body Mass Index 39.4 Assessment & Plan Assessment & Plan (1) Lumbar radiculopathy: Code(s): M54.16 - Radiculopathy, lumbar region Category: Medical (2) Vertebrogenic low back pain: Code(s): M54.51 - Vertebrogenic low back pain Category: Medical (3) Lumbar spondylosis: Code(s): M47.816 - Spondylosis without myelopathy or radiculopathy, lumbar region Category: Medical Plan Plan Given the patient's significant relief from the left L4 diagnostic nerve root block, I will send him back to Dr. Cohen to evaluate the possibility of surgical intervention for long-term management of lumbar radiculopathy. The ronda ent understands the conservative options available and will consider nerve stimulation either before or after surgery. He will follow up with Dr. Cohen to explore these options. Patient was informed and verbally consented to the use of an ambient scribe for clinic note documentation during this visit. Discussion Notes I discussed with the patient the significant relief following the left L4 nerve root block and the potential for surgical intervention as the next step. The patient understands the benefits and alternatives, including nerve stimulation, and expressed interest in assessing long-term surgical solutions after further consultation. We addressed the natural variability of pain and reiterated the importance of matching intervention intensity with symptom levels. Follow-up with Dr. Cohen will involve detailed discussions on surgical prospects, with ongoing consideration of conservative treatments. Patient Instructions - Follow up with Dr. Cohen to discuss potential surgical options. - Consider conservative management options, such as nerve stimulation, either before or after surgery. - Monitor pain levels, particularly after physical activity, and report any jemal nges. - Seek immediate care if experiencing severe or acute pain changes. Coding Level of Care Code Est Pt Level 3 (84191) Diagnoses Lumbar radiculopathy M54.16 Vertebrogenic low back pain M54.51 Lumbar spondylosis M47.816
[2024-05-09 11:46] VITALS: BP 142/73; PULSE 79; RESP 16; O2SAT 96; BMI 39.4
== END 2024-05-09 11:51 | disposition home or self-care (01) ==
PROVIDERS: PCP Internal Medicine; Visit Provider Internal Medicine
DX: M54.16 Radiculopathy, lumbar region (principal); M54.51 Vertebrogenic low back pain; M47.816 Spondylosis without myelopathy or radiculopathy, lumbar region
CPT/HCPCS: 99213

== ENCOUNTER → 2024-05-09 11:43 | Outpatient (BNVA) | payer MEDICARE, SELFPAY | PROVIDERS: PCP Internal Medicine; Visit Provider Internal Medicine | DX: M54.16 Radiculopathy, lumbar region (principal); M54.51 Vertebrogenic low back pain; M47.816 Spondylosis without myelopathy or radiculopathy, lumbar region | CPT/HCPCS: 99212 ==

== ENCOUNTER 2024-05-18 14:35 | Outpatient (AMB) | payer MEDICARE, SELFPAY ==
--- NOTE | 2024-05-18 15:07 | HO.SPINEOV ---
Intake Visit Reasons: F/u after Pain management Referral Intake Note: Mr. Goodson is here today for a F/u after being seen with Pain Management. 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 Required: No Allergies morphine [MORPHINE] Allergy (Intermediate, Verified 05/09/24 11:52) AGITATION Anesthetics - Amide Type - Select A [Anesthetics - Amide Type] Allergy (Unknown, Verified 05/09/24 11:52) UNKNOWN Opioids - Morphine Analogues Allergy (Verified 05/09/24 11:52) Unknown Statins Allergy (Unknown, Uncoded 05/09/24 11:52) Unknown Statins Support Allergy (Unknown, Uncoded 05/09/24 11:52) muscle and joint pain Assessment & Plan Assessment & Plan (1) Neuroforaminal stenosis of lumbar spine: Code(s): M48.061 - Spinal stenosis, lumbar region without neurogenic claudication Category: Medical Plan Dear colleague, On 05/18/2024 I saw for follow-up Madhav Goodson. As you know, he has severe left-sided back pain that radiates to his left leg. Differential diagnosis was L4 radiculopathy versus sacroiliitis. I referred him for an L4 nerve block which gave him complete relief of symptoms for several days. Currently the symptoms returned and continued to be debilitating. I offered him a left L4 foraminotomy based on his clinical symptoms and response to the epidural steroid injection. We discussed the procedure and expected postoperative outcome. Me scheduled for 06/16/2024. He had cardiac stents placed in 2013 for which he takes aspirin. I told him to hold his aspirin 3 days prior to surgery. Coding Level of Care Code Est Pt Level 3 (40072) Diagnoses Neuroforaminal stenosis of lumbar spine M48.061
--- OUTSIDE RECORDS SUMMARY | 2024-05-18 16:52 | XMS_ITS | Continuity of Care Document ---
Author Organization [email or web address] Address [address] [place] [address]- Care Team Providers Care Multicultural Internship Name Role Phone Carroll Ndiaye MD Primary Care Physician [phone] Encounter [facility] NBR [id number] Date(s): 04/12/24 - 05/12/24 [email or web address] [address] [place] [phone] Encounter Type: Triage Allergies, Adverse Reactions, Alerts [...] influenza virus vaccine, inactivated 11/23/17 Give n [id number] bivalent booster vax 12/30/21 Recorded SARS-CoV-2 (COVID-19) mRNA-1273 vaccine 06/25/21 R ecorded SARS-CoV-2 (COVID-19) mRNA-1273 vaccine 06/18/20 R ecorded SARS-CoV-2 (COVID-19) mRNA-1273 vaccine 05/21/20 R ecorded pneumococcal 13-valent vaccine 3 02/21/20 Given tetanus/diphtheria/pertussis, acel(Tdap) 11/23/17 Given Zoster Vaccine Live 4 12/30/13 Recorded tetanus-diphtheria toxoids (Td) 11/02/13 Recorded tetanus-diphtheria toxoids (Td) 4/14/13 Recorded tetanus-diphtheria toxoids (Td) 03/02/06 Given 1Result Comment: [facility]: [id number] 2Result Comment: [facility]# [id number] 3Result Comment: [facility]# [id number] 4Location History[facility] Medications amLODIPine 10 mg [...] 12:21:00 PM EST, [facility], 178, cm, 03/17/24 [...] 9:10:00 AM EDT, Route to Pharmacy Electronically, [facility], Partial fill uponpatient request if [...] 3 Refills, Maintenance, 11/17/23 9:10:00 AM EDT, [facility], 178, cm, 11/17/23 8:46:00 EDT, [...] 9:10:00 AM EDT, Route to Pharmacy Electronically, [facility], 178, cm,11/17/23 8:46:00 EDT, Height Start Date: 11/17/23 Stop Date: 11/11/24 Status: Ordered Quantity: 540.0 Unit: tablet Repeat number: 4 Ventolin HFA 108 mcg/inh inhalation aerosol with adapter 2 puffs, Inhalation, 4 times a day, PRN for wheezing, # 18 Gm, 0 Refills, Maintenance, 03/07/19 4:00:00 PM EST, Aerosol, [facility]/pharmacy #[id number], 177.8, cm, 03/07/19 15:22:00 EST, Height, [...] back surgery for schwannoma in 1999 at [facility] by . Currently going to [place] [facility] 2he sees Dr. Dumont at [facility] 3s/p Stent placement in LAD and OM-1 drug eluting stents in Jan 2012 4status post renal cell carcinoma and status post right nephrectomy in 2000 in [facility]. No chemotherapy or radiation 5status post umbilical hernia repair x2 Social History Social History Type Response Smoking Status Never (less than 100 in lifetime); Tobacco user in household: No entered on: 03/12/21 Sex Sex Representation Male (finding) Patient Care team information Care Team Personnel Name: Jaci Weldon RN Position: [facility] RN Member Role: Primary Care Nurse Name: Razia Fitch RN, I Position: [facility] RN Member Role: Primary Care Nurse Name: Marti Mortensen RN Position: [facility] SN Mds Rn Member Role: Primary Care Nurse Name: Carroll Ndiaye MD Position: [facility] Physician - Primary Care Member Role: PCP Address: [address] [place] [address] Adult [facility], [place] [address]- [place] [employer]: Name: Connie GARZA, Evelyn Position: [facility] RN Member Role: Primary Care Nurse Care Team Related Persons Name: ANKIT NEREIDA Insurance Providers Guarantor name: DAWSON PHAM Health Plan Information #: 1 Payer: MEDICARE PART B OUTPT Member Number: NA Policy Number: NA Group Number: NA Health Plan Information #: 2 Payer: MEDEX Member Number: NA Policy Number: NA Group Number: NA
== END 2024-05-18 15:59 | disposition home or self-care (01) ==
LOC: HO.HNS 14:36
PROVIDERS: PCP Internal Medicine; Visit Provider Neurological Surgery
DX: M48.061 Spinal stenosis, lumbar region without neurogenic claudication (principal)
CPT/HCPCS: 99213

== ENCOUNTER → 2024-05-18 14:35 | Outpatient (BNVA) | payer MEDICARE, SELFPAY | PROVIDERS: PCP Internal Medicine; Visit Provider Neurological Surgery | DX: M48.061 Spinal stenosis, lumbar region without neurogenic claudication (principal) | CPT/HCPCS: 99212 ==

== ENCOUNTER 2024-06-16 07:46 | Day surgery (SDC) | payer MEDICARE, SELFPAY ==
[2024-06-01 11:16] VITALS: BMI 39.1
--- NOTE | 2024-06-15 09:47 | P.CONAN_ITS ---
Documented by User: Lisa Mullins NP 06/15/24 10:06 HPI - Anesthesia Eval Consult details Narrative: 69yo M for LEFT L4 Foraminotomy Follows [facility] for CAD s/p stent x 2 - last 2018. Stable at 08/2023 office visit for 1 year f/u. Hx of PONV as child ? r/t amide anesthetics. Now, no issues with any type of anesthesia. Has had general and local without reaction. PMFSH Active Problems Active Problems: All Active Problems Neuroforaminal stenosis of lumbar spine (Acute) Lumbar radiculopathy (Acute) Vertebrogenic low back pain (Acute) Lumbar spondylosis (Acute) Dysfunction of the multifidus muscle of lumbar region (Acute) Degenerative disc disease, lumbar (Acute) Open wound of thumb (Acute) Puncture wound (Acute) Periorbital cellulitis of right eye (Acute) Right bundle branch block (RBBB) determined by electrocardiography (Acute) Hyperlipidemia (Acute) HTN (hypertension) (Acute) CAD (coronary artery disease) (Acute) Past Medical History Medical History Single kidney BPH (benign prostatic hyperplasia) Essential tremor Gilbert disease Wears dentures History of syncope Arthritis Back pain History of kidney cancer History of CVA (cerebrovascular accident) (~2013) Right bundle branch block (RBBB) determined by electrocardiography Statin intolerance Hyperlipidemia HTN (hypertension) CAD (coronary artery disease) Family History Family History Father CVD (cardiovascular disease) Mother CVD (cardiovascular disease) Surgical History Surgical History History of total right knee replacement (TKR) Hx of repair of rotator cuff Hx of spinal surgery (~2001) History of nephrectomy, right H/O heart artery stent Stented coronary artery Hx of cardiac cath Hx of knee surgery History of umbilical hernia repair Hx of cholecystectomy Social History Social History Household Members: Spouse Housing: House Are you a primary health care manager to a significant other at home: No Do you presently have visiting nurse or other home services: No Alcohol intake: current Alcohol intake frequency: holidays/special occasions only Patient Tobacco Use Status: Never used Tobacco Use of substances other than those prescribed or required for medical reasons: No Have you been hit, kicked, punched, or otherwise hurt by someone within the past year? If so, by whom?: No Are you DNR?: No Advance Directives: No Advance Directives Information Provided: Yes Advance Directives on File: No Healthcare Proxy: No Meds Allergies Allergy/AdvReac Type Severity Reaction Status Date / Time morphine [MORPHINE] Allergy Intermediate agitation, Verified 06/16/24 08:33 headache Opioids - Morphine Analogues Allergy Intermediate agitation, Verified 06/16/24 08:33 headache Statins Allergy Severe muscle and Uncoded 06/16/24 08:33 joint pain Statins Support Allergy Severe muscle and Uncoded 06/16/24 08:33 joint pain Home Medications ?Medication ?Instructions ?Recorded ?Confirmed ?Last Taken ?Type metoprolol succinate 100 mg 100 mg PO BEDTIME 03/16/20 06/01/24 Unknown History tablet,extended release 24 hr aspirin 81 mg tablet,delayed 81 mg PO BID 04/12/20 06/01/24 Unknown History release (Adult Aspirin Regimen) cholecalciferol (vitamin D3) 25 25 mcg PO BEDTIME 06/13/20 06/01/24 Unknown History mcg (1,000 unit) capsule gabapentin 300 mg capsule 300 mg PO BID 06/13/20 06/01/24 Unknown History niacin 500 mg tablet,extended 500 mg PO BEDTIME 06/13/20 06/01/24 Unknown History release 24 hr (Niaspan) primidone 50 mg tablet 50 mg PO BID 06/13/20 06/01/24 Unknown History thiamine HCl (vitamin B1) 100 mg 50 mg PO BEDTIME 06/13/20 06/01/24 Unknown History tablet losartan 50 mg-hydrochlorothiazide 1 tab PO BEDTIME 06/01/24 06/01/24 Unknown History 12.5 mg tablet Exam Height,Weight and Vital Signs: Height 5 ft 9 in Weight 120.202 kg Pertinent Lab Results Pertinent Lab Results: Laboratory Tests 09/08/23 15:51 WBC 8.0 Hgb 15.6 Hct 42.4 Plt Count 221 Sodium 143 Potassium 3.3 Chloride 109 H Carbon Dioxide 23 BUN 13 Creatinine 1.12 Narrative Narrative: EKG 2023 Vent. Rate : 086 BPM Atrial Rate : 086 BPM P-R Int : 198 ms QRS Dur : 144 ms QT Int : 406 ms P-R-T Axes : 047 038 015 degrees QTc Int : 485 ms Normal sinus rhythm Right bundle branch block Abnormal ECG When compared with ECG of 05-JUN-2018 08:19, No significant change was found NM cardiolite stress test 2023 Impression: 1. Normal myocardial perfusion 2. Gated LVEF is 63% 3. Transient ischemic dilatation not present Stress EKG is negative for ischemia Assessment and Plan Assessment Anesthesia Assessment: Chart Reviewed Documented by User: Zuly Serrato MD 06/16/24 09:34 [facility] Past Medical History Medical History Single kidney BPH (benign prostatic hyperplasia) Essential tremor Gilbert disease Wears dentures History of syncope Arthritis Back pain History of kidney cancer History of CVA (cerebrovascular accident) (~2013) Right bundle branch block (RBBB) determined by electrocardiography Statin intolerance Hyperlipidemia HTN (hypertension) CAD (coronary artery disease) Family History Family History Father CVD (cardiovascular disease) Mother CVD (cardiovascular disease) Family history of problems with anesthesia: Yes Surgical History Surgical History History of total right knee replacement (TKR) Hx of repair of rotator cuff Hx of spinal surgery (~2001) History of nephrectomy, right H/O heart artery stent Stented coronary artery Hx of cardiac cath Hx of knee surgery History of umbilical hernia repair Hx of cholecystectomy Social History Social History Household Members: Spouse Housing: House Are you a primary health care manager to a significant other at home: No Do you presently have visiting nurse or other home services: No Alcohol intake: current Alcohol intake frequency: holidays/special occasions only Patient Tobacco Use Status: Never used Tobacco Use of substances other than those prescribed or required for medical reasons: No Have you been hit, kicked, punched, or otherwise hurt by someone within the past year? If so, by whom?: No Are you DNR?: No Advance Directives: No Advance Directives Information Provided: Yes Advance Directives on File: No Healthcare Proxy: No Meds Allergies Allergy/AdvReac Type Severity Reaction Status Date / Time morphine [MORPHINE] Allergy Intermediate agitation, Verified 06/16/24 08:33 headache Opioids - Morphine Analogues Allergy Intermediate agitation, Verified 06/16/24 08:33 headache Statins Allergy Severe muscle and Uncoded 06/16/24 08:33 joint pain Statins Support Allergy Severe muscle and Uncoded 06/16/24 08:33 joint pain Home Medications ?Medication ?Instructions ?Recorded ?Confirmed ?Last Taken ?Type metoprolol succinate 100 mg 100 mg PO BEDTIME 03/16/20 06/01/24 Unknown History tablet,extended release 24 hr aspirin 81 mg tablet,delayed 81 mg PO BID 04/12/20 06/01/24 Unknown History release (Adult Aspirin Regimen) cholecalciferol (vitamin D3) 25 25 mcg PO BEDTIME 06/13/20 06/01/24 Unknown History mcg (1,000 unit) capsule gabapentin 300 mg capsule 300 mg PO BID 06/13/20 06/01/24 Unknown History niacin 500 mg tablet,extended 500 mg PO BEDTIME 06/13/20 06/01/24 Unknown History release 24 hr (Niaspan) primidone 50 mg tablet 50 mg PO BID 06/13/20 06/01/24 Unknown History thiamine HCl (vitamin B1) 100 mg 50 mg PO BEDTIME 06/13/20 06/01/24 Unknown History tablet losartan 50 mg-hydrochlorothiazide 1 tab PO BEDTIME 06/01/24 06/01/24 Unknown History 12.5 mg tablet Exam Airway Mallampati Class: III TM Dist: >3cm Neck ROM: Limited Denture: Upper Loose/Missing/Broken Teeth: Yes and Upper Heart: RRR Lungs: CTA Assessment and Plan Assessment Anesthesia Assessment: Anesthesia Plan Discussed and Chart Reviewed Final Anesthetic Review Family History of Problems with Anesthesia: Yes NPO: Yes ASA Class: III Final Preanesthetic Review: Meds/Allgs Chart Reviewed, Consent Obtained/Reviewed and Anes Risks/Benef Reviewed Patient Risk: Intermediate Procedure Risk: Intermediate Anesthetic Plan Anesthetic Plan: GA Disposition: Standard PACU
[2024-06-16] VITALS (12 sets, daily range): BP systolic 122–157; BP diastolic 66–82; PULSE 75–84; RESP 14–18; TEMP 36.1–36.9; O2SAT 92–96; BMI 39.4
--- NOTE | ~2024-06-16 | FL_ITS ---
EXAMINATION: FL GUIDANCE ONLY HISTORY: left l4 foraminotomy COMPARISON: None available. TECHNIQUE: Fluoroscopy time: 0.1 minutes. Cumulative Dose: 10.5 mGy. DAP: 2.45 mGym2 Images: 2. FINDINGS: Fluoroscopic spot films of the lumbar spine in the lateral projection demonstrate a needle directed toward the L3-4 intervertebral disc space, and a probe directed toward the L4-5 intervertebral disc space. FL/FL guidance in OR IMPRESSION: Fluoroscopy during procedure. Please see procedure report for additional information. Electronically signed by: Cristobal Blankenship MD 06/16/2024 10:31 AM EDT
--- NOTE | 2024-06-16 07:46 | MHC.SHP ---
Pre-Procedural Eval Section A - 24 Hr Update-Section A only Date of Service: 06/16/24 The patient is an INPATIENT: No Changes since office visit: No Cold of Flu in the past 2 weeks, No New Medical Problems, No Changes in Medication and No Patient answered all questions The patient has been examined within 24 hours of the surgical procedure. The History & Physical has been completed within 30 days and I have reviewed it.: No Section B - Complete if H&P > 30 days Chief Complaint: Spinal stenosis, lumbar region without neurogenic Allergies: Allergies Allergy/AdvReac Type Severity Reaction Status Date / Time morphine [MORPHINE] Allergy Intermediate agitation, Verified 06/01/24 10:50 headache Opioids - Morphine Analogues Allergy Intermediate agitation, Verified 06/01/24 10:51 headache Statins Allergy Severe muscle and Uncoded 06/01/24 10:50 joint pain Statins Support Allergy Severe muscle and Uncoded 06/01/24 10:50 joint pain Review of Systems Sugical H&P ROS: Negative: Constitution, Cardiovascular, Respiratory, Neurological, Psychiatric, Hem-Onc, Allergic/Immunologic, Gastrointestinal, Genitourinary, Musculoskeletal, Integumentary, Endocrine and Eyes/Ears/Nose/Throat Exam Surgical H&P Exam: Normal: HEENT, Normal: Heart, Normal: Lungs, Normal: Extremities, Normal: Abdomen, Normal: Skin and Normal: Neurological (awake, alert,oriented x 3 ) Plan Diagnosis/Plan: Unchanged left L4 foraminotomy Time Spent With Patient Time: Total time managing care of this patient today _5___ minutes.
--- NOTE | 2024-06-16 07:46 | PM.DS ---
DS: Providers Provider Date of Service: 06/16/24 Date of discharge: 06/16/24 Primary care physician: Carroll Ndiaye MD DS: Summary Time Attestation Discharge Coordination Time (in mins): 5 Quality: Safe Use of Opioids Does Pt have an Active Cancer Diagnosis on the Problem List?: No Quality: Stroke Does the patient have a stroke diagnosis?: No Physical Exam Vital Signs: Vital Signs: BMI result Body Mass Index 39.1 Discharge Plan Discharge Patient Disposition: Home, Self-Care Referrals: Carroll Ndiaye MD [Primary Care Provider] - 1 Week Discharge Medications: New docusate sodium [Colace] 100 mg capsule 100 mg PO BID Qty: 20 0RF oxycodone 5 mg tablet 5 mg PO Q4H PRN (Reason: pain) Qty: 20 0RF Rx Instructions: Partial Fill upon patient request. Continued amlodipine 10 mg tablet 10 mg PO DAILY Qty: 90 3RF Repatha SureClick 140 mg/mL pen injector 140 mg subcut Q2W 30 Days Qty: 3 1RF losartan-hydrochlorothiazide 50-12.5 mg tablet 1 tab PO BEDTIME metoprolol succinate 100 mg tablet extended release 24 hr 100 mg PO BEDTIME gabapentin 300 mg capsule 300 mg PO BID niacin [Niaspan Extended-Release] 500 mg tablet extended release 24 hr 500 mg PO BEDTIME primidone 50 mg tablet 50 mg PO BID cholecalciferol (vitamin D3) 25 mcg (1,000 unit) capsule 25 mcg PO BEDTIME thiamine HCl (vitamin B1) 100 mg tablet 50 mg PO BEDTIME Held aspirin [Adult Aspirin Regimen] 81 mg tablet,delayed release (DR/EC) 81 mg PO BID Discharge Orders: Discharge Order (Routine); Ordered 06/16/24 Ordered By: Peter Barnett Diet: Advance to usual diet Activity on Discharge: As tolerated Activity Restrictions/Additional Instructions: After your spinal surgery we ask you to observe the following restrictions/guidelines: Activity: It is normal to feel some discomfort as you increase your activity, but that will improve with time. We ask you avoid heavy lifting or acitivities that cause pain. As a general rule, 8lbs is a safe limit for lifting right after surgery. Walk as much as you feel comfortable but not to exhaustion. You will feel extra tired the first few days after surgery. Stay well hydrated. It is OK to walk up and down stairs You may return to driving when you are off narcotics (such as vicodin, oxycodone, dilaudid, etc), and you are back to normal functional capacity. If you have any concerns please check with office before driving. Return to work is specific to each patient and each surgery, so please speak with your doctor/PA at first follow up. Please bring paperwork such as FMLA at that time if you need it filled out. Medications: You can resume your aspirin 7 days after surgery For optimum pain control, it is best to start with a combination of 500 mg of Tylenol every 4 hours with 600 mg of Motrin every 8 hours, and use narcotics as needed in between for breakthrough pain. We will give you a short supply of narcotics after surgery (usually one weeks worth). If you need more please call the office but do not use more than prescribed. You will need to give our office 48 hours notice if you need narcotics refilled and we do not fill narcotics on weekends or evenings. If you are on a narcotic, it is a good idea to take a stool softener such as colace or senna to avoid constipation If you take blood thinner such as aspirin, Plavix, Coumadin, Effient, Eliquis etc for conditions such as Afib, DVT, Pulmonary embolus, coronary disease, stents etc please speak with your surgeon about specific details as to when you can resume these medications. You can resume NSAIDs on post op day 1 (eg: Motrin, Naproxen, etc). Follow up: Please call the office, , after surgery to arrange a 3 week follow up for wound check. Wound Care: You may remove your dressing on the first day after surgery. ?You may ?leave open to air. Please do not remove the steri strips underneath. they will fall off on their own in one week. IT IS NORMAL FOR THE WOUND TO OOZE OR BE BLOODY FOR A FEW DAYS AFTER SURGERY. ?IF THIS HAPPENS JUST PLACE NEW DRESSING OVER IT TO AVOID STAINING CLOTHES. You may shower on post op day # 1 We ask that you do not let the water soak the wound. If it does get wet, just towel dry lightly. Please do not scrub your incision or place any type of chemical/ointment on the wound. No tub baths, pools or jacuzzis for one month. If you have any leaking or redness from your wound, or fevers, please call office Print Language: Georgian
[2024-06-16] MEDS: methocarbamoL 750 MG TABLET PO (08:48)
[2024-06-16] MEDS: Lactated Ringers 1,000 ML 100 ML IVCONT (08:48)
[2024-06-16] MEDS: ceFAZolin Sodium/Dextrose,Iso 2 GM/50 ML PIGGYBACK IV (09:20)
[2024-06-16] MEDS: Acetaminophen 1,000 MG/100 ML PIGGYBACK 400 MG IV (09:40)
--- NOTE | 2024-06-16 10:26 | P.OP_ITS ---
Operative Note Operative Note Date of Service: 06/16/24 Narrative: Preoperative Diagnosis: Spinal stenosis/lateral recess stenosis/neural foraminal stenosis Operation: Left L4 Laminotomy, Partial facetectomy and foraminotomy with use of microscope Consent Informed Consent was obtained for this operation. I have explained the nature, purpose and benefits of the operation. I have discussed the risks and benefit of the operation including possible complications or adverse events with patient/family. Alternative(s) were discussed with the patient with their relative benefits and risks as well as the consequences of not accepting the operation were included in obtaining consent. Surgeon: JULIETH HENDERSON MD, PHD Procedure Assisted By: steve Hester Description of Procedure This patient is suffering a left L4 radiculopathy responding to an L4 nerve block. MRI shows moderate stenosis with the L4 nerve root. The patient was offered a decompression of the nervous structures. The procedure complications were explained. The patient was consented. The patient was brought to the operating room and endotracheally intubated. The patient was turned in prone position on the Yao frame. Prep and drape was done followed by timeout. Physician administrative assistant office manager provided access. A mid lumbar incision was made followed by release of the paravertebral muscle on the left side to expose the L3-4 lamina and facet joint. An intraoperative x-ray was obtained to confirm the correct level. The microscope was brought in. I took over the procedure. The high-speed drill was used to do a L4 laminotomy. #2 Kerrison was used to further remove the lamina towards the L4 foramen. With a nerve hook the medial wall of the L4 pedicle was palpated as well as the beginning of the L4 foramen. The facet joint was partially drilled down after which with a #2 Kerrison a foraminotomy was don e. Finally a foraminotomy Kerrison was used to complete the foraminotomy. A long nerve hook could be easily passed lateral and dorsally from the nerve root, a sign of relief of the neuroforaminal stenosis and decompression of the nerve root . The microscope was removed. Hemostasis was done. Incision was closed in 2 layers. Steri-Strips were used to approximate incision. An OpSite with Tegaderm was used to cover the incision. All sponge needle counts were correct. Patient was extubated and transported in stable is to recovery room. Anesthesia: General Estimated Blood Loss (ml): Minimal Duration of Surgery: Under 60 Minutes Postoperative Plan: Discharge to home
[2024-06-16] MEDS: HYDROmorphone HCl 0.5 MG/0.5 ML SYRINGE 0.25 MG IVPUSH ×4 (11:25→11:40)
== END 2024-06-16 12:32 | disposition home or self-care (01) ==
PROVIDERS: PCP Internal Medicine; Visit Provider Neurological Surgery
PROC: (CPT 63047; principal; 2024-06-16 10:00)
DX: M48.061 Spinal stenosis, lumbar region without neurogenic claudication (principal); M54.16 Radiculopathy, lumbar region; I25.10 Atherosclerotic heart disease of native coronary artery without angina pectoris; Z95.5 Presence of coronary angioplasty implant and graft; I45.10 Unspecified right bundle-branch block; I10 Essential (primary) hypertension; E78.5 Hyperlipidemia, unspecified; Z86.73 Personal history of transient ischemic attack (TIA), and cerebral infarction without residual deficits; Z85.528 Personal history of other malignant neoplasm of kidney; Z90.5 Acquired absence of kidney; Z79.82 Long term (current) use of aspirin; Z88.5 Allergy status to narcotic agent; Z88.8 Allergy status to other drugs, medicaments and biological substances; Z98.890 Other specified postprocedural states; Z79.899 Other long term (current) drug therapy
CPT/HCPCS: 63047; J0131; J0690; J1100; J1171; J2003; J2405; J2704; J3010

== ENCOUNTER → 2024-06-16 07:46 | Outpatient (BNV) | payer MEDICARE, SELFPAY | PROVIDERS: PCP Internal Medicine; Visit Provider Neurological Surgery | DX: M48.062 Spinal stenosis, lumbar region with neurogenic claudication (principal) | CPT/HCPCS: 63047; 99499 ==

== ENCOUNTER 2024-07-08 14:20 | Outpatient (AMB) | payer MEDICARE, SELFPAY ==
--- NOTE | 2024-07-08 14:22 | HO.SPINEOV ---
Intake Visit Reasons: 1st post op Intake Note: Mr. Goodson is here today for his 1st post op. 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: No Allergies morphine [MORPHINE] Allergy (Intermediate, Verified 07/08/24 14:25) agitation, headache Opioids - Morphine Analogues Allergy (Intermediate, Verified 07/08/24 14:25) agitation, headache Statins Allergy (Severe, Uncoded 06/16/24 08:33) muscle and joint pain Statins Support Allergy (Severe, Uncoded 06/16/24 08:33) muscle and joint pain Assessment & Plan Assessment & Plan (1) Neuroforaminal stenosis of lumbar spine: Code(s): M48.061 - Spinal stenosis, lumbar region without neurogenic claudication Category: Medical Plan Mr Goodson is here for a follow up visit 3 weeks out from his L4 foraminotomy. He has been doing great, he describes the pain relief is night and day. He gets a little bit of back soreness if he starts to do something overactive. His wound is healed up beautifully. We discussed activity guidelines, restrictions and expectations after foraminotomy. At this point since he is doing so well we can see him back on an as-needed basis. Peter Cohen MD, PhD [facility] Coding Level of Care Code Global (10022) Diagnoses Neuroforaminal stenosis of lumbar spine M48.061
== END 2024-07-08 14:36 | disposition home or self-care (01) ==
LOC: HO.HNS 14:20
PROVIDERS: PCP Internal Medicine; Visit Provider Physician Assistant
DX: M48.061 Spinal stenosis, lumbar region without neurogenic claudication (principal)
CPT/HCPCS: 99024

== ENCOUNTER → 2024-07-08 14:20 | Outpatient (BNVA) | payer MEDICARE, SELFPAY | PROVIDERS: PCP Internal Medicine; Visit Provider Physician Assistant | DX: Z48.811 Encounter for surgical aftercare following surgery on the nervous system (principal); Z86.69 Personal history of other diseases of the nervous system and sense organs; Z98.890 Other specified postprocedural states | CPT/HCPCS: 99212 ==

== ENCOUNTER 2024-09-20 08:21 | Outpatient (AMB) | payer MEDICARE, SELFPAY ==
[2024-09-20 08:30] VITALS: BP 120/82; PULSE 85; BMI 40.4
--- NOTE | 2024-09-20 08:30 | A.OFFVIS_ITS ---
Vital Signs 09/20/24 08:30 Height 5 ft 9 in Weight 273 lb 5.971 oz BMI 40.4 BP 120/82 Blood Pressure Location Lt brachial Position Sitting Pulse 85 Intake Visit Reasons: 1 yr f/up Intake Note: 1 year follow-up had ekg in May feeling good Allergies morphine (MORPHINE) Allergy (Intermediate, Verified 07/08/24 14:25) agitation, headache Opioids - Morphine Analogues Allergy (Intermediate, Verified 07/08/24 14:25) agitation, headache Statins Allergy (Severe, Uncoded 06/16/24 08:33) muscle and joint pain Statins Support Allergy (Severe, Uncoded 06/16/24 08:33) muscle and joint pain Medication List - Last Reconciled 09/20/24 by Felipe Daigle MD amlodipine 10 mg PO DAILY aspirin (Adult Aspirin Regimen) 81 mg PO BID celecoxib (Celebrex) 100 mg PO DAILY cholecalciferol (vitamin D3) 25 mcg PO BEDTIME evolocumab (Repatha SureClick) 140 mg subcut Q2W 30 days gabapentin 300 mg PO BID losartan-hydrochlorothiazide 50-12.5 mg 1 tab PO BEDTIME metoprolol succinate ER 100 mg PO BEDTIME niacin ER (Niaspan) 500 mg PO BEDTIME primidone 50 mg PO BID thiamine HCl (vitamin B1) 50 mg PO BEDTIME HPI Comments Details: Madhav comes for follow-up. He underwent back surgery in May and says since then he is feeling great. He has back pain in his dissipated. He is very happy with the results. He denies any cardiac symptoms. Denies any chest pain or shortness of breath. Patient now is struggling with weight gain. He said he is determined to lose weight. Denies any orthopnea, PND, leg edema. No lightheadedness, syncope. No prolonged palpitation irregular heartbeat. Takes all his medications. His LDL is extremely well optimized in the 30s [facility], [facility] Medical History Single kidney BPH (benign prostatic hyperplasia) Essential tremor Gilbert disease Wears dentures History of syncope Arthritis Back pain History of kidney cancer History of CVA (cerebrovascular accident) (~2013) Right bundle branch block (RBBB) determined by electrocardiography Statin intolerance Hyperlipidemia HTN (hypertension) CAD (coronary artery disease) Surgical History History of total right knee replacement (TKR) Hx of repair of rotator cuff Hx of spinal surgery (~2001) History of nephrectomy, right H/O heart artery stent Stented coronary artery Hx of cardiac cath Hx of knee surgery History of umbilical hernia repair Hx of cholecystectomy Family History Father CVD (cardiovascular disease) Mother CVD (cardiovascular disease) Social History Household Members: Spouse Housing: House Are you a primary career representative to a significant other at home: No Do you presently have visiting nurse or other home services: No Alcohol intake: current Alcohol intake frequency: holidays/special occasions only Patient Tobacco Use Status: Never used Tobacco Review of Systems Const Denies chills, Denies fatigue, Denies fever(s), Denies frequent falls, Denies weakness, Denies weight gain and Denies weight loss ENT Denies dizziness Card Denies chest pain, Denies leg edema, Denies lightheadedness, Denies palpitations, Denies dyspnea, Denies dyspnea on exertion, Denies orthopnea and Denies other (loss of consciousness) Resp Denies cough, Denies dyspnea and Denies dyspnea on exertion GI Denies hematochezia and Denies change in stool character Musc Denies abnormal gait, Denies muscle weakness, Denies numbness, Denies radiating pain into limb and Denies tingling Neuro Denies abnormal gait, Denies dizziness, Denies frequent falls, Denies numbness, Denies tingling and Denies weakness Endo Denies fatigue and Denies palpitations Physical Exam Vital Signs: Last Vital Signs Pulse 85 09/20/24 08:30 BP 120/82 09/20/24 08:30 BMI result Body Mass Index 40.4 Const General: cooperative, comfortable, alert and awake Nutritional Appearance: obese Orientation/consciousness: patient oriented x3 Limitations: no limitations Neck Neck: Yes trachea midline, Yes supple and Yes no JVD Chest Chest palpation & inspection: normal inspection of the chest Resp Effort & Inspection: normal respiratory effort Auscultation: clear to auscultation bilaterally Cardio Jugular venous distension: no JVD Palpation: normal PMI Rate: regular rate Rhythm: regular rhythm Heart sounds: S1 normal heart sound present, S2 normal heart sound present and Other heart sounds present (Soft S4 present) Skin General skin exam: no rashes or lesions noted Neuro General: patient oriented x3 and no focal motor deficits Extrem General: Yes no clubbing, cyanosis or edema Psych Appearance: grossly normal Assessment & Plan Assessment & Plan (1) CAD (coronary artery disease): Code(s): I25.10 - Atherosclerotic heart disease of [place] coronary artery without angina pectoris Category: Medical Plan: Stable CAD in this elderly gentleman with myocardial perfusion imaging last year within normal limits. This carries good prognosis discussed with him. Continue lifelong aspirin therapy. Continue current PCSK9 inhibitor therapy with well optimized LDL. He has been statin intolerant in the past. Continue aggressive blood pressure control. Encouraged to participate in lifestyle modification with aggressive weight loss program. He said he is very determined he would do that. Encouraged to also increase activity level. (2) HTN (hypertension): Code(s): I10 - Essential (primary) hypertension Category: Medical Plan: Hypertension which is currently well optimized on current therapy. Continue all of the medication including amlodipine, losartan hydrochlorothiazide combination as well as metoprolol. Advised to monitor blood pressure at home maintain a log. Goal blood pressure less than 130/84. Low-salt diet was discussed. Participate in intense lifestyle modification was discussed. He understands agrees. Will follow up in the clinic in 1 year's time, sooner p.r.n.. Thank you for allowing me to partake in his care Coding Level of Care Code Est Pt Level 4 (71597) Complex EM visit Add On G2211 Diagnoses CAD (coronary artery disease) I25.10 HTN (hypertension) I10
== END 2024-09-20 09:01 | disposition home or self-care (01) ==
LOC: HO.HCS 08:22
PROVIDERS: PCP Internal Medicine; Visit Provider Internal Medicine Cardiovascular Disease
DX: I25.10 Atherosclerotic heart disease of native coronary artery without angina pectoris (principal); I10 Essential (primary) hypertension
CPT/HCPCS: 99214; G2211

== ENCOUNTER → 2024-09-20 08:21 | Outpatient (BNVA) | payer MEDICARE, SELFPAY | PROVIDERS: PCP Internal Medicine; Visit Provider Internal Medicine Cardiovascular Disease | DX: I25.10 Atherosclerotic heart disease of native coronary artery without angina pectoris (principal); I10 Essential (primary) hypertension | CPT/HCPCS: 99212 ==